=== PATIENT | female | born 1955 ===

== ENCOUNTER → 2020-06-02 15:04 | Outpatient (BNVA) | payer MEDICAID, SELFPAY | PROVIDERS: PCP Internal Medicine; Referring Provider Internal Medicine; Visit Provider Internal Medicine | DX: J44.9 Chronic obstructive pulmonary disease, unspecified (principal); G47.33 Obstructive sleep apnea (adult) (pediatric); R05 Cough; E66.9 Obesity, unspecified; F17.200 Nicotine dependence, unspecified, uncomplicated; Z71.3 Dietary counseling and surveillance; Z71.6 Tobacco abuse counseling; Z79.51 Long term (current) use of inhaled steroids | CPT/HCPCS: 99213 ==

== ENCOUNTER 2020-06-18 13:09 | Emergency (ER) | payer MEDICAID, SELFPAY ==
[2020-06-18 13:15] VITALS: BP 138/59; PULSE 74; RESP 16; TEMP 36.7; O2SAT 94; BMI 37.4
[2020-06-18 13:20] VITALS: BP 138/59; PULSE 71; RESP 16; TEMP 36.7; O2SAT 94
--- NOTE | 2020-06-18 13:48 | ECG_ITS ---
Test Reason : LEFT ARM PAIN Blood Pressure : / mmHG Vent. Rate : 071 BPM Atrial Rate : 071 BPM P-R Int : 160 ms QRS Dur : 084 ms QT Int : 396 ms P-R-T Axes : 056 035 098 degrees QTc Int : 430 ms Normal sinus rhythm Nonspecific T wave abnormality Abnormal ECG When compared with ECG of 31-OCT-2017 00:18, No significant change was found Referred By: Wu Major Electronically Signed By:FERNANDA RODRIGUEZ MD
--- NOTE | 2020-06-18 13:49 | XR_ITS ---
EXAMINATION: XR SHOULDER, LEFT CLINICAL INFORMATION: Left shoulder pain. COMPARISON: None TECHNIQUE: AP and scapular Y views of the left shoulder. FINDINGS: No acute fracture or dislocation. Acromioclavicular joint space narrowing with marginal osteophytes. Anterior and lateral subacromial spurring. Small glenohumeral marginal osteophytes. No osseous erosion. No abnormal soft tissue calcification. XR/XR shoulder LT min 2V IMPRESSION: Moderate acromioclavicular as well as mild glenohumeral osteoarthritis. Anterior and lateral subacromial spurs.
--- NOTE | 2020-06-18 13:50 | ED.EXTPRO ---
HPI - Extremity Problem General Chief complaint: Extremity Problem Stated complaint: LEFT ARM PAIN Time Seen by Provider: 06/18/20 13:47 Source: patient Mode of arrival: ambulatory Limitations: no limitations History of Present Illness HPI Narrative: 64 years old female presented with left arm/shoulder pain for 3 days, describes the pain as constant and more at nighttime, pain is localized on the mid upper left arm, described the pain as severe dull, with no radiation, pain is worsened by movement of the left arm especially trying to raise it above his head, patient declined trauma or recent fall, Related Data Home Medications Medication Instructions Recorded Confirmed albuterol sulfate 90 mcg/actuation 2 puff INHALATION Q6H PRN 06/02/20 aerosol inhaler amitriptyline 25 mg tablet 25 mg PO BEDTIME 06/02/20 aripiprazole 10 mg tablet 10 mg PO DAILY 06/02/20 citalopram 20 mg tablet 20 mg PO DAILY 06/02/20 gabapentin 100 mg capsule 100 mg PO TID 06/02/20 nitrofurantoin macrocrystal 100 mg 100 mg PO BEDTIME 06/02/20 capsule oxybutynin chloride 5 mg 5 mg PO DAILY 06/02/20 tablet,extended release 24 hr umeclidinium 62.5 mcg/actuation 1 inh INHALATION DAILY 06/02/20 blister powder for inhalation verapamil 180 mg 24 hr 180 mg PO DAILY 06/02/20 capsule,extended release Previous Rx's Medication Instructions Recorded benzonatate 100 mg capsule 100 mg PO TID PRN 30 Days #90 cap 06/09/20 Allergies Allergy/AdvReac Type Severity Reaction Status Date / Time No Known Allergies Allergy Mild UNKNOWN Verified 06/02/20 14:59 Review of Systems Review of Systems: all other systems are reviewed and are negative Constitutional: Reports as per HPI and Reports no additional constitutional complaints Eyes: Reports as per HPI and Reports no additional eye complaints Reports system reviewed and no additional complaints, except as documented Cardiovascular: Reports as per HPI and Reports no additional cardiovascular complaints Respiratory: Reports as per HPI and Reports no additional respiratory complaints Gastrointestinal: Reports as per HPI and Reports no additional gastrointestinal complaints Genitourinary: Reports no additional female genitourinary complaints Musculoskeletal: Reports no additional musculoskeletal complaints Skin/Breast: Reports system reviewed and no additional complaints, except as docu Psychiatric: Reports no additional psychiatric complaints Endocrine: Reports no additional endocrine complaints Hematologic/Lymphatic: Reports no additional hematologic/lymphatic complaints Allergic/Immunologic: Reports no additional allergic/immunologic complaints Reports system reviewed and no additional complaints, except as documented and Reports Abnormal speech present [facility] Past Medical History Medical History COPD (chronic obstructive pulmonary disease) Cough Obesity JOSE RAMON (obstructive sleep apnea) Social History Social History Alcohol intake: never Smoking Status: Current every day smoker Packs Per Day: 0.5 Cigarettes Per Day: 10.0 Use of substances other than those prescribed or required for medical reasons: No Advance Directives: No Advance Directives Information Provided: Yes Physical Exam Vital Signs: Vital Signs: Vital Signs Temp Pulse Resp BP Pulse Ox 06/18/20 15:16 98.1 F 63 16 132/58 L 97 06/18/20 13:20 98.1 F 71 16 138/59 L 94 06/18/20 13:15 98.1 F 74 16 138/59 L 94 Body Mass Index 37.4 vital signs have been reviewed as normal and appeared to be correct. Blood pressure on the high range. Heart rate normal. Respiration rate normal. Temperature normal. Oxygen saturation normal. Appearance: Alert. Oriented X3. No acute distress. Head: Normal external exam. Normocephalic. Atraumatic. No Fry signs noted. No raccoon eyes noted Eyes: PERRLA. EOMI. Conjunctiva and sclera normal. Eyelids normal. ENT: EAC normal. TM's Normal. Pharynx normal. Uvula midline. Moist mucous membranes. No trismus noted. No drooling noted. No muffled voice noted. Neck: Normal inspection. Neck supple. FROM. No adenopathy. Thyroid Normal. No meningeal signs. No neck mass noted. CVS: Normal heart rate and rhythm. Heart sound normal. No murmurs noted. Pulses normal throughout. Respiratory: No respiratory distress. Painless inspiration. Breath sounds normal. No wheezes/rales/rhonchi noted. Chest nontender. No accessory muscle usage noted or decreased air movement noted. Abdomen: Soft and nontender. Bowel sounds normal in all 4 quadrants. No distention noted. No organomegaly noted. No visible injury noted. Back: No CVA tenderness. Full range of motion noted. Skin: Skin warm and dry. Normal skin color. Normal skin turgor. No rashes/lesions/lacerations noted. Extremities: No lower extremity edema. Extremities exhibit normal range of motion. tenderness over the greater tuberosity, tenderness started when patient start to elevate her arm up to 30 degree unable to raise the arm above the head. Otherwise painful full range of motion, no deformity. Neuro: Oriented X 3. No motor deficit. No sensory deficit. Reflexes normal. Course Course Course Narrative: 64-year-old female history of COPD, obesity, obstructive sleep apnea, presented with nontraumatic left arm pain likely secondary to rotator cuff tendinitis. Given the patient age and risk factor will obtain blood workup for rule out cardiac origin of the pain (EKG, trope, x-ray ). MDM - Extremity (Nontraumatic) MDM Narrative Medical decision making narrative: Assessment and plan. 64-year-old female came in with 3 days of left arm pain physical exam and finding are consistent with rotator cuff tendinitis, cardiac workup on the patient is unremarkable and that include EKG/troponin. Patient will be discharged home and follow-up with orthopedic doctor and NSAIDs. Lab Data Result diagrams: 06/18/20 14:46 06/18/20 14:46 Labs: Lab Results 06/18/20 06/18/20 06/18/20 Range/Units 14:46 14:46 14:46 WBC 7.9 (4.8-10.8) X10*3/uL RBC 4.38 (4.20-5.50) X10*6/uL Hgb 13.2 (12.0-16.0) g/dl Hct 40.0 (37-47) % MCV 91.3 (80-98) fL MCH 30.1 (27.0-33.0) pg MCHC 33.0 (31.0-35.0) g/dl RDW 13.4 (11.0-16.0) % Plt Count 220 (160-400) X10*3/uL MPV 9.6 (9.4-12.3) fL Immature Gran % (Auto) 0.3 (0.0-0.4) % Neut % (Auto) 71.0 (45-73) % Lymph % (Auto) 21.0 (20-40) % [place] % (Auto) 5.9 (2-11) % Eos % (Auto) 1.4 (0-4) % Baso % (Auto) 0.4 (0-2) % Lymph # (Auto) 1.7 (1.2-4.9) X10*3/uL [place] # (Auto) 0.5 (0.1-1.2) X10*3/uL Eos # (Auto) 0.1 (0.0-0.4) X10*3/uL Baso # (Auto) 0.0 (0.0-0.2) X10*3/uL Abs Immat Gran (auto) 0.02 (0.00-0.03) X10*3/uL Absolute Neuts (auto) 5.6 (2.0-8.3) X10*3/uL Absolute Nucleated RBC 0.000 (0.0-0.012) X10*3/uL Nucleated RBC % (auto) 0.0 (0.0-0.2) /100WBC Sodium 140 (135-145) mmol/L Potassium 4.5 (3.3-5.1) mmol/l Chloride 104 (96-108) mmol/L Carbon Dioxide 28 (22-29) mmol/L Anion Gap 13 (12-20) BUN 10 (9-16) mg/dL Creatinine 0.81 (0.5-1.4) mg/dL Estim Creat Clear Calc 80.2 Estimated GFR > 60 Random Glucose 115 (60-115) mg/dL Calcium 8.3 L (8.4-10.2) mg/dL Troponin I High Sens < 3.5 (<3.5-17.0) ng/L Imaging Data Left shoulder x-ray: My impression: IMPRESSION: Moderate acromioclavicular as well as mild glenohumeral osteoarthritis. Anterior and lateral subacromial spurs. ECG Data Interpretation: normal sinus rhythm at 69 beats per minutes, normal axis deviation, normal intervals, nonspecific T-wave flattening in V3, V4, V5, V6. Discharge Plan Discharge Prescriptions: No Action benzonatate [Tessalon Perles] 100 mg capsule 100 mg PO TID PRN (Reason: cough) 30 Days Qty: 90 RF: 1 citalopram [Celexa] 20 mg tablet 20 mg PO DAILY RF: 0 amitriptyline 25 mg tablet 25 mg PO BEDTIME RF: 0 verapamil 180 mg capsule,ext rel. pellets 24 hr 180 mg PO DAILY RF: 0 gabapentin 100 mg capsule 100 mg PO TID RF: 0 aripiprazole [Abilify] 10 mg tablet 10 mg PO DAILY RF: 0 albuterol sulfate [Ventolin HFA] 90 mcg/actuation HFA aerosol inhaler 2 puff inhalation Q6H PRNRF: 0 Incruse Ellipta 62.5 mcg/actuation blister with device 1 inh inhalation DAILY RF: 0 oxybutynin chloride 5 mg tablet extended release 24hr 5 mg PO DAILY RF: 0 nitrofurantoin macrocrystal 100 mg capsule 100 mg PO BEDTIME RF: 0
[2020-06-18 14:52] LABS: Basophils Percent Auto 0.4 % (0-2); Eosinophils Absolute Auto 0.1 X10*3/uL (0.0-0.4); Eosinophils Percent Auto 1.4 % (0-4); Hemoglobin 13.2 g/dl (12.0-16.0); Imm Gran Abs Auto 0.02 X10*3/uL (0.00-0.03); Imm Gran Pct Auto 0.3 % (0.0-0.4); Lymphocytes Absolute Auto 1.7 X10*3/uL (1.2-4.9); MANUAL DIFF FLAG NO; Mean Corpuscular Hemoglobin 30.1 pg (27.0-33.0); Mean Corpuscular Volume 91.3 fL (80-98); Mean Platelet Volume 9.6 fL (9.4-12.3); Monocytes Absolute Auto 0.5 X10*3/uL (0.1-1.2); Monocytes Percent Auto 5.9 % (2-11); Neutrophils Absolute Auto 5.6 X10*3/uL (2.0-8.3); Platelet Count 220 X10*3/uL (160-400); Red Blood Count 4.38 X10*6/uL (4.20-5.50); Red Cell Distribution Width 13.4 % (11.0-16.0); White Blood Count 7.9 X10*3/uL (4.8-10.8)
[2020-06-18 15:16] VITALS: BP 132/58; PULSE 63; RESP 16; TEMP 36.7; O2SAT 97
[2020-06-18 15:18] LABS: Troponin-I High Sensitivity < 3.5 ng/L (<3.5-17.0)
[2020-06-18 15:23] LABS: Anion Gap 13 (12-20); Blood Urea Nitrogen 10 mg/dL (9-16); Calcium 8.3 mg/dL (8.4-10.2); Carbon Dioxide 28 mmol/L (22-29); Chloride 104 mmol/L (96-108); Creatinine Clr Calc Pharmacy 80.2; Estimated Glomerular Filt Rate > 60; Glucose Random 115 mg/dL (60-115); Potassium 4.5 mmol/l (3.3-5.1); Sodium 140 mmol/L (135-145)
== END 2020-06-18 16:27 | disposition home or self-care (01) ==
PROVIDERS: Emergency Provider Emergency Medicine; PCP Internal Medicine
DX: M79.622 Pain in left upper arm (principal); Z79.899 Other long term (current) drug therapy; F17.200 Nicotine dependence, unspecified, uncomplicated; Z71.6 Tobacco abuse counseling
CPT/HCPCS: 36415; 73030; 80048; 84484; 85025; 93005; 99283; 99284

== ENCOUNTER → 2020-07-20 10:58 | Outpatient (BNVA) | payer MEDICAID, SELFPAY | PROVIDERS: Visit Provider Orthopaedic Surgery | DX: M25.512 Pain in left shoulder (principal); M75.42 Impingement syndrome of left shoulder; F17.210 Nicotine dependence, cigarettes, uncomplicated | CPT/HCPCS: 99202 ==

== ENCOUNTER 2020-08-10 11:47 | Outpatient (REF) | payer MEDICAID, SELFPAY | END 2020-08-10 11:48 | disposition home or self-care (01) | LOC: HO.LAB 11:47 | PROVIDERS: Visit Provider Internal Medicine | DX: Z20.828 Contact with and (suspected) exposure to other viral communicable diseases (principal) | CPT/HCPCS: C9803; U0003 ==

== ENCOUNTER 2020-08-23 10:35 | Outpatient (REF) | payer MEDICAID, SELFPAY | END 2020-08-23 10:36 | disposition home or self-care (01) | LOC: HO.LAB 10:35 | PROVIDERS: Visit Provider Internal Medicine | DX: Z20.828 Contact with and (suspected) exposure to other viral communicable diseases (principal) | CPT/HCPCS: 36415; C9803; U0003 ==

== ENCOUNTER → 2020-09-15 14:54 | Outpatient (BNVA) | payer MEDICAID, SELFPAY | PROVIDERS: PCP Internal Medicine; Visit Provider Urology ==

== ENCOUNTER 2020-12-08 09:54 | Outpatient (REF) | payer MEDICARE, SELFPAY ==
[2020-12-08 10:31] LABS: COVID-19 Test Negative (Negative)
== END 2020-12-08 09:55 | disposition home or self-care (01) ==
LOC: HO.LAB 09:54
PROVIDERS: Visit Provider Internal Medicine
DX: Z20.822 Contact with and (suspected) exposure to COVID-19 (principal)
CPT/HCPCS: 36415; 87635; C9803

== ENCOUNTER → 2021-01-26 11:15 | Outpatient (BNVA) | payer MEDICARE, SELFPAY | PROVIDERS: PCP Internal Medicine; Visit Provider Internal Medicine | DX: J44.9 Chronic obstructive pulmonary disease, unspecified (principal); G47.33 Obstructive sleep apnea (adult) (pediatric) | CPT/HCPCS: Q3014 ==

== ENCOUNTER → 2021-03-07 13:10 | Outpatient (BNVA) | payer MEDICARE, SELFPAY | PROVIDERS: PCP Internal Medicine | DX: N39.41 Urge incontinence (principal) | CPT/HCPCS: Q3014 ==

== ENCOUNTER → 2021-05-02 11:29 | Outpatient (BNVA) | payer MEDICARE, SELFPAY | PROVIDERS: PCP Internal Medicine | DX: N39.41 Urge incontinence (principal) | CPT/HCPCS: Q3014 ==

== ENCOUNTER → 2021-07-17 14:05 | Outpatient (BNVA) | payer MEDICARE, SELFPAY | PROVIDERS: PCP Internal Medicine; Visit Provider Internal Medicine | DX: G47.33 Obstructive sleep apnea (adult) (pediatric) (principal); G47.34 Idiopathic sleep related nonobstructive alveolar hypoventilation; J44.9 Chronic obstructive pulmonary disease, unspecified | CPT/HCPCS: Q3014 ==

== ENCOUNTER 2021-08-15 14:03 | Outpatient (RCR) | payer MEDICARE, SELFPAY | END 2021-09-04 10:52 | disposition home or self-care (01) | LOC: HO.PT 14:03 | PROVIDERS: PCP Internal Medicine; Visit Provider Internal Medicine | DX: M54.50 Low back pain, unspecified (principal) | CPT/HCPCS: 97162 ==

== ENCOUNTER 2021-09-07 10:00 | Outpatient (REF) | payer MEDICARE, SELFPAY ==
--- NOTE | ~2021-09-07 | XR_ITS ---
EXAMINATION: XR CHEST CLINICAL INFORMATION: Cough COMPARISON: Chest radiographs 10/10/2019, 11/20/2018 TECHNIQUE: 2 views of the chest were obtained. FINDINGS: There is coarsening of the bronchiolar and interstitial markings similar to prior exam. No lobar or segmental airspace consolidation or definite groundglass opacities. The costophrenic sulci are clear. There is no effusion. The heart is normal in size. The vascularity is normal. The hilar and mediastinal contours and bony structures are stable. XR/XR chest 2V IMPRESSION: Chronic coarsening bronchiolar and interstitial markings. No focal airspace consolidation or definite groundglass opacity.
[2021-09-07 11:37] LABS: Anion Gap 11 (12-20); Blood Urea Nitrogen 11 mg/dL (9-16); Calcium 9.2 mg/dL (8.4-10.2); Carbon Dioxide 28 mmol/L (22-29); Chloride 107 mmol/L (96-108); Cholesterol 189 mg/dL; Estimated Glomerular Filt Rate > 60; Glucose Random 93 mg/dL (60-115); HDL Cholesterol 45 mg/dL; LDL Cholesterol Calculated 115 mg/dl; Potassium 4.3 mmol/L (3.3-5.1); Sodium 142 mmol/L (135-145); Triglycerides 148 mg/dL
== END 2021-09-07 10:01 | disposition home or self-care (01) ==
LOC: HO.XRAY 10:00
PROVIDERS: Absent Provider Internal Medicine; PCP Internal Medicine; Visit Provider Emergency Medicine
DX: I10 Essential (primary) hypertension (principal); R05.9 Cough, unspecified
CPT/HCPCS: 36415; 71046; 80048; 80061

== ENCOUNTER → 2021-10-30 10:57 | Outpatient (BNVA) | payer MEDICARE, SELFPAY | PROVIDERS: PCP Internal Medicine | DX: N39.41 Urge incontinence (principal); N32.81 Overactive bladder | CPT/HCPCS: Q3014 ==

== ENCOUNTER 2021-12-28 14:11 | Outpatient (REF) | payer MEDICARE, SELFPAY ==
--- NOTE | ~2021-12-28 | MM_ITS ---
EXAMINATION: MM SCREENING DIGITAL BREAST TOMOSYNTHESIS, BILATERAL CLINICAL INFORMATION: Screening. Asymptomatic. The lifetime risk of breast cancer based on the Tyrer-Cuzick Model is 5.5%. COMPARISON: Mammography: November 24, 2015 and studies dating back to March 06, 2010 TECHNIQUE: Digital breast tomosynthesis is performed in both the craniocaudal and mediolateral oblique views along with computer-aided detection (CAD). Synthesized 2D images are generated from the tomosynthesis. FINDINGS: There are scattered areas of fibroglandular density (ACR BI-RADS breast composition Category b). There are no significant masses, abnormal calcifications, or other abnormalities. MM/MM tomosynthesis screening BI IMPRESSION: There are no significant changes from prior study. ASSESSMENT: BI-RADS 1: Negative RECOMMENDATION: Routine annual mammography screening. This patient's information was entered into a reminder system with a target due date for their next mammogram.
== END 2021-12-28 14:12 | disposition home or self-care (01) ==
LOC: HO.MAMMO 14:11
PROVIDERS: PCP Internal Medicine; Visit Provider Internal Medicine
DX: Z12.31 Encounter for screening mammogram for malignant neoplasm of breast (principal)
CPT/HCPCS: 77063; 77067

== ENCOUNTER → 2022-01-30 08:56 | Outpatient (BNVA) | payer MEDICARE, SELFPAY | PROVIDERS: PCP Internal Medicine | DX: N32.81 Overactive bladder (principal) | CPT/HCPCS: Q3014 ==

== ENCOUNTER → 2022-08-14 13:50 | Outpatient (BNVA) | payer MEDICARE, SELFPAY | PROVIDERS: PCP Internal Medicine; Visit Provider Internal Medicine | DX: G47.33 Obstructive sleep apnea (adult) (pediatric) (principal); G47.34 Idiopathic sleep related nonobstructive alveolar hypoventilation; J44.9 Chronic obstructive pulmonary disease, unspecified; R07.89 Other chest pain; E66.9 Obesity, unspecified; Z68.37 Body mass index [BMI] 37.0-37.9, adult; Z79.899 Other long term (current) drug therapy; Z99.81 Dependence on supplemental oxygen | CPT/HCPCS: 93005; 99212 ==

== ENCOUNTER 2022-09-26 13:11 | Outpatient (REF) | payer MEDICARE, SELFPAY | END 2022-09-26 13:12 | disposition home or self-care (01) | LOC: HO.LAB 13:11 | PROVIDERS: PCP Internal Medicine; Visit Provider Nurse Practitioner Family | DX: N39.0 Urinary tract infection, site not specified (principal); R10.9 Unspecified abdominal pain; N32.81 Overactive bladder; N39.41 Urge incontinence; Z79.899 Other long term (current) drug therapy | CPT/HCPCS: 51798; 87086; 99212 ==

== ENCOUNTER 2022-12-20 13:31 | Outpatient (REF) | payer MEDICARE, MEDICAID, SELFPAY ==
--- NOTE | ~2022-12-20 | US_ITS ---
EXAMINATION: US RETROPERITONEAL COMPLETE (RENAL) CLINICAL INFORMATION: Urge incontinence. COMPARISON: CT abdomen and pelvis without contrast dated 07/16/2018. TECHNIQUE: Real-time imaging of the kidneys and bladder. FINDINGS: RIGHT KIDNEY: 10.6 x 4.4 x 5.8 cm (SAG x AP x TRV). The kidney is normal in size, contour, and echogenicity. Renal cortical thickness is normal. No calculi or focal parenchymal lesions. No hydronephrosis. LEFT KIDNEY: 9.9 x 5.0 x 5.3 cm (SAG x AP x TRV). The kidney is normal in size, contour, and echogenicity. Renal cortical thickness is normal. No calculi or focal parenchymal lesions. There is pelviectasis, without chata hydronephrosis. BLADDER: Well distended and normal. Bilateral ureteral jets are demonstrated. Prevoid bladder volume is 507 mL. Postvoid bladder volume is 161 mL. US/US retroperitoneal comp IMPRESSION: 1. No renal mass or calculus is seen bilaterally. 2. There is mild left pelviectasis. No chata hydronephrosis is noted bilaterally. 3. There is an increased postvoid residual volume.
== END 2022-12-20 13:32 | disposition home or self-care (01) ==
LOC: HO.US 13:31
PROVIDERS: PCP Internal Medicine; Visit Provider Nurse Practitioner Family
DX: R10.9 Unspecified abdominal pain (principal); N32.81 Overactive bladder; N39.41 Urge incontinence
CPT/HCPCS: 76770

== ENCOUNTER 2023-01-03 | Outpatient (REF) | payer MEDICARE, SELFPAY | END 2023-01-03 00:01 | LOC: CF | PROVIDERS: PCP Internal Medicine; Visit Provider Nurse Practitioner Family | DX: N32.81 Overactive bladder (principal); R35.0 Frequency of micturition; R35.1 Nocturia; R31.29 Other microscopic hematuria | CPT/HCPCS: 51798; 99212 ==

== ENCOUNTER 2023-04-23 15:04 | Outpatient (AMB) | payer MEDICARE, SELFPAY ==
[2023-04-23 15:10] VITALS: BP 102/70; PULSE 80; O2SAT 98; BMI 35.9
--- NOTE | 2023-04-23 15:10 | MHC.OFFVIS ---
Intake Vital Signs 04/23/23 15:10 Height 5 ft 4 in Weight 209 lb BMI 35.9 BP 102/70 Blood Pressure Location Lt brachial Position Sitting Pulse 80 Pulse Source Pulse Oximeter Pulse Oximetry (%) 98 Oxygen Delivery Method Room Air Intake Visit Reasons: sleep apnea Intake Note: pt is here for follow up and states today she is okay, but the past nights she had difficult with breathing, using cpap with oxygen, but feels like she is not getting a good breath. Senior Physical Therapist Required: No Allergies No Known Allergies Allergy (Mild, Verified 04/23/23 15:28) UNKNOWN Medication List - Last Reconciled 04/23/23 by Oleksandr Ortega MD albuterol sulfate 90 mcg/actuation (Ventolin HFA) 2 puffs inhalation Q6H PRN amitriptyline 25 mg PO BEDTIME aripiprazole mg PO aripiprazole 2 mg PO DAILY bupropion HCl 200 mg PO BID citalopram (Celexa) 20 mg PO DAILY citalopram 40 mg PO QAM gabapentin 400 mg PO TID Incruse Ellipta 62.5 mcg/actuation (umeclidinium) 1 inh PO DAILY NS mirtazapine 15 mg PO BEDTIME morphine ER 30 mg PO DAILY naloxone 4 mg/actuation 0 sprays intranasal verapamil 40 mg PO BID Do you need a note to return to daycare/school/sports/work: No HPI sleep apnea HPI Details 67 YEARS OLD VERY PLEASANT FEMALE IS HERE FOR FOLLOW-UP AND COMING AFTER ABOUT 9 MONTHS. SHE IS A CASE OF MODERATE OBESITY, HIS SLEEP APNEA, CHRONIC HYPOVENTILATION SYNDROME BECAUSE OF NARCOTICS USAGE . SHE ALSO HAS CHRONIC OBSTRUCTIVE LUNG DISEASE, WITH INTERMITTENT COUGH AND WHEEZING. WHILE SHE IS USING HER CPAP VERY REGULARLY ALONG WITH OXYGEN, SHE IS WAKING UP AT NIGHT A FEW TIMES BECAUSE OF COUGH AND SOME WHEEZING. SHE TENDS TO USE ALBUTEROL INHALER A FEW TIMES DURING THE NIGHT. 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 DENIES HAVING HAD ANY RESPIRATORY INFECTION LATELY. [facility] Medical History COPD (chronic obstructive pulmonary disease) Costochondral chest pain Cough Maternal UTI (urinary tract infection), recurrent Nocturnal hypoxemia OAB (overactive bladder) Obesity JOSE RAMON (obstructive sleep apnea) Urge incontinence Urgency incontinence Social History Alcohol intake: never Cigarette Packs Per Day: 0.5 Cigarettes Per Day: 10.0 Current occupation: Right Handed Review of Systems Const All systems reviewed & are unremarkable except as noted in HPI and below Eyes Reports no additional complaints ENT Reports nasal congestion (MILD INTERMITTENT) Card Reports chest pain ( nonspecific discomfort in the left upper chest), Denies irregular heart rhythm, Denies leg edema and Denies dyspnea on exertion Resp Reports as per HPI, Denies cough, Denies dyspnea on exertion and Denies wheezing GI Reports no additional complaints Reports urinary urgency Musc Reports back pain (DUE TO COUGH) Skin/Breast Reports system reviewed and no additional complaints, except as documented Neuro Reports no additional complaints Psych Reports no additional complaints Aller/Immun Denies wheezing Physical Exam Vital Signs: Last Vital Signs Pulse 80 04/23/23 15:10 BP 102/70 04/23/23 15:10 Pulse Ox 98 04/23/23 15:10 Oxygen Delivery Method Room Air 04/23/23 15:10 BMI result Body Mass Index 35.9 Const General: healthy appearing, comfortable, no acute distress, alert and awake Orientation/consciousness: patient oriented x3 HEENT Head: Yes normal to inspection General nose exam: No nasal polyps present and No nasal discharge present Face and sinus: Yes sinuses nontender Mouth: oropharynx normal Throat: Yes posterior oropharynx normal Eyes General: appearance normal, both eyes and all related structures Neck Neck: Yes normal visual inspection, Yes no lymphadenopathy, Yes trachea midline and Yes no JVD Thyroid: Thyroid normal Chest Chest palpation & inspection: normal inspection of the chest, normal palpation of entire chest wall and no tenderness Resp Other: PERCUSSION NOTE IS RESONANT BREATH SOUNDS ARE DISTANT WITH PROLONGED EXPIRATORY PHASE, THERE ARE A FEW SCATTERED EXPIRATORY WHEEZES. Cardio Palpation: normal PMI Rate: regular rate Rhythm: regular rhythm Heart sounds: no gallops and no murmurs GI Palpation (GI): Soft to palpation, nontender, No hepatosplenomegaly present and no masses Auscultation: normal bowel sounds Back/Spine/Pelvis Thoracic/Lumbar Spine: thoracic and lumbar spine normal to inspection Skin General skin exam: no rashes or lesions noted Neuro General: patient oriented x3 and no focal motor deficits Cranial nerves: Yes CN's II-XII intact bilaterally Extrem General: Yes normal to inspection, Yes no clubbing, cyanosis or edema and Yes no calf tenderness Psych Appearance: grossly normal Speech and movement: Normal speech and movement present Results Reviewed Results Reviewed: SPIROMETRY , FVC = 92 % FEV1=90 $ FEF 25-75 = 89 % NORMAL COMPLIANCE SHE USED THE CPAP 30/30 NIGHTS, 100%. AVERAGE USE PER DAY IS 13 HOURS 37 MINUTES, IN ADDITION TO THE NIGHTS SHE USES CPAP DURING THE DAYTIME ALSO. THERE IS THE SOME AIR LEAK RESIDUAL AHI ONLY 0.5 Assessment & Plan Assessment & Plan (1) Nocturnal hypoxemia: Comment: SHE HAS NOCTURNAL HYPOXEMIA ALL IN ADDITION TO OBSTRUCTIVE SLEEP APNEA. ADVISED TO CONTINUE O2 2 L/MINUTE AT NIGHT , ALONG WITH THE CPAP. Code(s): G47.34 - Idiopathic sleep related nonobstructive alveolar hypoventilation (2) JOSE RAMON (obstructive sleep apnea): Comment: WELL KNOWN CASE OF OBSTRUCTIVE SLEEP APNEA. PATIENT IS VERY COMPLIANT IN USING CPAP AND IS BENEFITTING, NO ISSUES RELATED TO THE CPAP MASK OR MACHINE. Code(s): G47.33 - Obstructive sleep apnea (adult) (pediatric) (3) COPD (chronic obstructive pulmonary disease): Comment: SHE HAS PAST DIAGNOSIS OF COPD. BUT TODAY SPIROMETRY IS ESSENTIALLY NORMAL. I THINK SHE HAS THE REACTIVE AIRWAYS/BRONCHIAL ASTHMA SHE COMPLAINS OF COUGH AND SOME WHEEZING ESPECIALLY AT NIGHT, TX : CONTINUE TO USE INCRUSE ELLIPTA 1 INHALATION DAILY. USE ALBUTEROL HFA 1 OR 2 PUFFS EVEN BEFORE PUTTING ON THE CPAP AND IL AN DURING THE NIGHT. Code(s): J44.9 - Chronic obstructive pulmonary disease, unspecified (4) Obesity: Comment: DISCUSSED WITH HER THAT HER WEIGHT IS A BIG PROBLEM AND SHE SHOULD TRY TO LOSE WEIGHT BY CUTTING DOWN THE CALORIES AND TRYING TO DO SOME EXERCISE AT HOME. UNFORTUNATELY SHE IS NOT ABLE TO PARTICIPATE IN ANY OUTSIDE WEIGHT MANAGEMENT PROGRAM. Code(s): E66.9 - Obesity, unspecified Orders: Orders Venous Blood Gas Today G47.33 - Obstructive sleep apnea (adult) (pediatric), G47.34 - Idiopathic sleep related nonobstructive alveolar hypoventilation, J44.9 - Chronic obstructive pulmonary disease, unspecified Coding Level of Care Code Est Pt Level 4 (63676) Diagnoses Nocturnal hypoxemia G47.34 JOSE RAMON (obstructive sleep apnea) G47.33 COPD (chronic obstructive pulmonary disease) J44.9 Obesity E66.9
== END 2023-04-23 15:41 | disposition home or self-care (01) ==
PROVIDERS: PCP Internal Medicine; Visit Provider Internal Medicine
DX: G47.34 Idiopathic sleep related nonobstructive alveolar hypoventilation (principal); G47.33 Obstructive sleep apnea (adult) (pediatric); J44.9 Chronic obstructive pulmonary disease, unspecified; E66.9 Obesity, unspecified
CPT/HCPCS: 99214

== ENCOUNTER 2023-04-23 15:04 | Outpatient (REF) | payer MEDICARE, SELFPAY ==
[2023-04-23 16:17] LABS: Venous Blood Gas Refer to POC result
[2023-04-23 16:46] LABS: VBG pCO2 41 mmHg; VBG pH 7.41 (7.32-7.43); VBG pO2 33 mmHg
[2023-04-23 16:47] LABS: VBG HCO3 26 mmol/L (22-26)
== END 2023-04-23 15:05 | disposition home or self-care (01) ==
LOC: HO.LAB 15:04
PROVIDERS: PCP Internal Medicine; Visit Provider Internal Medicine
DX: G47.34 Idiopathic sleep related nonobstructive alveolar hypoventilation (principal); G47.33 Obstructive sleep apnea (adult) (pediatric); E66.9 Obesity, unspecified; J44.9 Chronic obstructive pulmonary disease, unspecified
CPT/HCPCS: 36415; 82803; 99212

== ENCOUNTER 2023-04-30 11:40 | Outpatient (REF) | payer MEDICARE, MEDICAID, SELFPAY | END 2023-04-30 11:41 | disposition home or self-care (01) | LOC: HO.LNP 11:40 | PROVIDERS: PCP Internal Medicine; Visit Provider Nurse Practitioner Family | DX: R31.29 Other microscopic hematuria (principal); N32.81 Overactive bladder; N39.41 Urge incontinence; N39.0 Urinary tract infection, site not specified | CPT/HCPCS: 51798; 81003; 87086; 99212 ==

== ENCOUNTER 2023-04-30 11:40 | Outpatient (AMB) | payer MEDICARE, MEDICAID, SELFPAY ==
--- NOTE | 2023-04-30 11:42 | MHC.OFFVIS ---
Intake Intake Visit Reasons: Urgency/incontinence' follow up Intake Note: Patient is present for follow up OAB/Frequency/Micro Hematuria Urology Medications: previously treated w/ myrbetriq, no medications currently Blood Thinner: none PVR: 0ml's Dot Etcher Apprentice Required: No Accompanied by: Self / Same As Patient Allergies No Known Allergies Allergy (Mild, Verified 04/30/23 22:38) UNKNOWN Medication List - Last Reconciled 04/30/23 by JM Dubois- albuterol sulfate 90 mcg/actuation (Ventolin HFA) 2 puffs inhalation Q6H PRN amitriptyline 25 mg PO BEDTIME aripiprazole mg PO aripiprazole 2 mg PO DAILY bupropion HCl 200 mg PO BID citalopram (Celexa) 20 mg PO DAILY citalopram 40 mg PO QAM estradiol 0.01%(0.1mg/gram) vaginally 3 times a week; pea sized amount to urethra 3 times a week 30 days gabapentin 400 mg PO TID Incruse Ellipta 62.5 mcg/actuation (umeclidinium) 1 inh PO DAILY NS mirtazapine 15 mg PO BEDTIME morphine ER 30 mg PO DAILY naloxone 4 mg/actuation 0 sprays intranasal sulfamethoxazole-trimethoprim 800-160 mg (Bactrim DS) 1 tab PO BID 10 days verapamil 40 mg PO BID HPI HPI Comments History of Present Illness Details Karina is a pleasant 67-year-old female patient of Dr. Rajan. She has a past medical history of overactive bladder, urinary incontinence, COPD, and obstructive sleep apnea. She presents to the office today for a follow-up. Of note, patient was previously seen approximately 4 months ago for increased episodes of nocturia, urinary frequency, and urinary urgency. Previous workup has included a retroperitoneal ultrasound noting no renal mass or calculus seen bilaterally. The bladder is well distended and normal. Bilateral ureteral jets are demonstrated. There was an increased postvoid residual volume of 160 mL. Patient has also previously had urine sent out for Microgen testing and was treated with fosfomysin. In office urinalysis results reviewed with the patient today. 2+ leukocytes. PVR 0 mL. When asked patient reporting dysuria, and urinary frequency. She otherwise denies incontinence, hematuria, dysuria, foul smelling urine, changes to urinary stream, flank pain, fever, and or chills. [facility] Medical History Costochondral chest pain OAB (overactive bladder) Nocturnal hypoxemia Maternal UTI (urinary tract infection), recurrent Urgency incontinence Urge incontinence Cough COPD (chronic obstructive pulmonary disease) Obesity JOSE RAMON (obstructive sleep apnea) Social History Alcohol intake: never Cigarette Packs Per Day: 0.5 Cigarettes Per Day: 10.0 Current occupation: Right Handed Review of Systems Const Reports as per HPI Eyes Reports no additional complaints ENT Reports as per HPI Card Reports no additional complaints Resp Reports as per HPI GI Reports no additional complaints Reports as per HPI Neuro Reports no additional complaints Psych Reports no additional complaints Endo Reports no additional complaints Physical Exam Const General: cooperative, healthy appearing, comfortable, no acute distress, well developed, alert and awake Orientation/consciousness: patient oriented x3 Limitations: no limitations HEENT Head: Yes normal to inspection, Yes normocephalic and Yes atraumatic Ears: hearing grossly normal bilaterally Eyes General: appearance normal, both eyes and all related structures Neck Neck: Yes normal visual inspection and Yes trachea midline Chest Chest palpation & inspection: normal inspection of the chest Resp Effort & Inspection: normal respiratory effort and able to speak in complete sentences Cardio Rate: regular rate GI Inspection: Yes normal to inspection General: Yes CVA tenderness (bilaterally) Back/Spine/Pelvis Back: CVA tenderness (bilaterally) Neuro General: patient oriented x3 Extrem General: Yes normal to inspection Psych Appearance: grossly normal and well kempt Mental Status: mental status grossly normal Speech and movement: Normal speech and movement present and Clear speech present Affect: normal affect Attitude: cooperative Thought process: Normal thought process present Insight: Fair insight present (Psych) Judgement: Fair judgement present (Psych) Office Procedures Post Void Residual Post Residual Void Post Void Residual (PVR): 0 30497-Pnry Void Residual by ultrasound Results AMB Urinalysis, Automated UA Leukoctes 125 Brandon/uL Last Edit by Lillian Palacios on 04/30/23 12:04 UA Nitrite Negative Last Edit by Lillian Palacios on 04/30/23 12:04 UA Urobilinogen 0.2 mg/dL Last Edit by Lillian Palacios on 04/30/23 12:04 UA Protein 15 mg/dL Last Edit by Lillian Josetucker on 04/30/23 12:04 UA pH 5.5 Last Edit by Lillian Rebecatucker on 04/30/23 12:04 UA Blood 0 Geo/uL Last Edit by Lillian Rebecatucker on 04/30/23 12:04 UA Specific [place] 1.030 Last Edit by Lillian Rebecatucker on 04/30/23 12:04 UA Ketone Negative Last Edit by Lillian Rebecatucker on 04/30/23 12:04 UA Bilirubin 1 mg/dL Last Edit by Lillian Rebecatucker on 04/30/23 12:04 UA Glucose 0 mg/dL Last Edit by Lillian Rebecatucker on 04/30/23 12:04 Results Reviewed Results Reviewed: Laboratory Last Values Urine pH (Auto) 5.5 04/30/23 11:47 Specific [place] (Auto) 1.030 04/30/23 11:47 Urine Protein (Auto) 15 mg/dL 04/30/23 11:47 Glucose (UA)(Auto) 0 mg/dL 04/30/23 11:47 Urine Ketones (Auto) Negative 04/30/23 11:47 Urine Blood (Auto) 0 Geo/uL 04/30/23 11:47 Urine Nitrite (Auto) Negative 04/30/23 11:47 Urine Bilirubin (Auto) 1 mg/dL 04/30/23 11:47 Urine Urobilinogen (Auto) 0.2 mg/dL 04/30/23 11:47 Leukocyte Esterase (Auto) 125 [place]/uL 04/30/23 11:47 Assessment & Plan Assessment & Plan (1) OAB (overactive bladder): Code(s): N32.81 - Overactive bladder (2) Urge incontinence: Code(s): N39.41 - Urge incontinence (3) Urinary tract infection: Code(s): N39.0 - Urinary tract infection, site not specified Plan In office urinalysis results reviewed with the patient today; as noted above; will send for urine culture. Start Bactrim as discussed and prescribed. Discussed UTI prevention with D mannose supplement, vitamin-C, increasing fluid intake, behavioral therapy with timed voiding, perineal hygiene and postcoital voiding, and management of constipation with stool softeners and increased fiber intake. Discussed near future in office cystoscopy if symptoms persist and/or worsen. Start Estrace cream as discussed and prescribed. PVR 0 mL. Continue Myrbetriq as patient reports improvement in urinary incontinence Follow-up in 1 month with PVR; or sooner with any issues, concerns, and or questions. Orders: Orders AMB Urinalysis Automated Today Z13.9 - Encounter for screening, unspecified AMB Post Void Residual by ultrasound Today R35.1 - Nocturia Urine Culture Today R31.29 - Other microscopic hematuria Medications: New sulfamethoxazole-trimethoprim 800-160 mg (Bactrim DS) Start medications 2 days prior to procedure and continue for 2 days after procedure 1 tab PO BID 10 days 20 tabs 0RF N32.81 - Overactive bladder estradiol 0.01%(0.1mg/gram) vaginally 3 times a week; pea sized amount to urethra 3 times a week 30 days 42.5 grams 0RF R32 - Unspecified urinary incontinence Patient Instructions: The patient had an opportunity to ask questions regarding the treatment plan. All questions were answered. Physical exam, labs, and imaging were discussed and reviewed in detail. As well as risks, benefits, and discussion of treatment choices. No major barriers to understanding were identified. The patient expressed understanding and agreement with the above treatment plan. The patient was made aware they should contact our office by phone for worsening of their current condition, the appearance of new symptoms, or with any questions or concerns. Compliance is encouraged with any medications and follow up testing that is ordered. It is a privilege to be allowed the opportunity to participate in? your urological care.? Again, if you have any questions or concerns If you have any questions or concerns please do not hesitate to contact me. The office is [phone]. This note is constructed using voice recognition software. While every effort has been made to ensure accuracy carcass trimmer errors may have been included. Yours sincerely, LUCERO Dubois Coding Level of Care Code Est Pt Level 4 (82070) Diagnoses OAB (overactive bladder) N32.81 Urge incontinence N39.41 Urinary tract infection N39.0 CPT Codes Post Residual Void - PVR CPT Code: 42633-Zfal Void Residual by ultrasound ([id number])
== END 2023-04-30 12:39 | disposition home or self-care (01) ==
PROVIDERS: PCP Internal Medicine; Visit Provider Nurse Practitioner Family
DX: N32.81 Overactive bladder (principal); N39.41 Urge incontinence; N39.0 Urinary tract infection, site not specified
CPT/HCPCS: 99214

== ENCOUNTER 2023-05-07 10:24 | Outpatient (REF) | payer MEDICARE, MEDICAID, SELFPAY ==
[2023-05-07 12:51] LABS: Cholesterol 231 mg/dL (<200); HDL Cholesterol 61 mg/dL (>40); LDL Cholesterol Calculated 146 mg/dL (<100); Triglycerides 121 mg/dL (<150)
[2023-05-07 13:04] LABS: Anion Gap 15 (12-20); Blood Urea Nitrogen 8 mg/dL (9-16); Calcium 10.2 mg/dL (8.4-10.2); Carbon Dioxide 24 mmol/L (22-29); Chloride 106 mmol/L (96-108); Estimated Glomerular Filt Rate 49; Glucose Random 102 mg/dL (60-115); Potassium 4.5 mmol/L (3.3-5.1); Sodium 140 mmol/L (135-145)
[2023-05-07 13:12] LABS: TSH reflex Free T4 1.45 uIU/mL (0.32-4.0)
[2023-05-07 13:35] LABS: Reflex LDLD? No
== END 2023-05-07 10:25 | disposition home or self-care (01) ==
LOC: HO.HHCL 10:24
PROVIDERS: Visit Provider Internal Medicine
DX: I10 Essential (primary) hypertension (principal)
CPT/HCPCS: 36415; 80048; 80061; 84443

== ENCOUNTER 2023-05-30 13:07 | Outpatient (AMB) | payer MEDICARE, MEDICAID, SELFPAY ==
--- NOTE | 2023-05-30 13:11 | MHC.OFFVIS ---
Intake Intake Visit Reasons: 1 month/ PVR Intake Note: Patient is present for follow up OAB/Frequency/Micro Hematuria Urology Medications: Estrace Cream Blood Thinner: none PVR: 2ml's Registered Representative Required: No Accompanied by: Self / Same As Patient Allergies No Known Allergies Allergy (Mild, Verified 05/30/23 22:16) UNKNOWN Medication List - Last Reconciled 05/30/23 by JM Dubois-IRMA albuterol sulfate 90 mcg/actuation (Ventolin HFA) 2 puffs inhalation Q6H PRN amitriptyline 25 mg PO BEDTIME aripiprazole mg PO aripiprazole 2 mg PO DAILY bupropion HCl 200 mg PO BID citalopram (Celexa) 20 mg PO DAILY citalopram 40 mg PO QAM estradiol 0.01%(0.1mg/gram) vaginally 3 times a week; pea sized amount to urethra 3 times a week 30 days gabapentin 400 mg PO TID Incruse Ellipta 62.5 mcg/actuation (umeclidinium) 1 inh PO DAILY NS mirabegron ER (Myrbetriq) 25 mg PO DAILY 30 days mirtazapine 15 mg PO BEDTIME morphine ER 30 mg PO DAILY naloxone 4 mg/actuation 0 sprays intranasal verapamil 40 mg PO BID HPI HPI Comments History of Present Illness Details Karina is a pleasant 67-year-old female patient of Dr. Rajan. She has a past medical history of overactive bladder, urinary incontinence, COPD, and obstructive sleep apnea. She presents to the office today for a follow-up. Of note, patient was previously seen approximately 1 month ago in treated for a urinary tract infection. In discussion with the patient today she reports somewhat improvement in lower urinary tract symptoms since her last office visit here. She reports noting lower urinary tract symptoms improving with Myrbetriq 25 mg daily however she does continue to experience episodes of urinary frequency, urinary urgency, and incontinence if not near a bathroom. Previous workup has included a retroperitoneal ultrasound noting no renal mass or calculus seen bilaterally. The bladder is well distended and normal. Bilateral ureteral jets are demonstrated. When asked patient reporting dysuria, nocturia, and urinary frequency. She otherwise denies incontinence, hematuria, dysuria, foul smelling urine, changes to urinary stream, flank pain, fever, and or chills. In office urinalysis results reviewed with the patient today. PVR 2 mL. Discussed at length importance of limiting/quitting smoking for improvement in lower urinary tract symptoms as well as overall health and well-being. [facility] Medical History Costochondral chest pain OAB (overactive bladder) Nocturnal hypoxemia Maternal UTI (urinary tract infection), recurrent Urgency incontinence Urge incontinence Cough COPD (chronic obstructive pulmonary disease) Obesity JOSE RAMON (obstructive sleep apnea) Social History Alcohol intake: never Cigarette Packs Per Day: 0.5 Cigarettes Per Day: 10.0 Current occupation: Right Handed Review of Systems Const Reports as per HPI Eyes Reports no additional complaints ENT Reports as per HPI Card Reports no additional complaints Resp Reports as per HPI GI Reports no additional complaints Reports as per HPI Neuro Reports no additional complaints Psych Reports no additional complaints Endo Reports no additional complaints Physical Exam Const General: cooperative, healthy appearing, comfortable, no acute distress, well developed, alert and awake Orientation/consciousness: patient oriented x3 Limitations: no limitations HEENT Head: Yes normal to inspection, Yes normocephalic and Yes atraumatic Ears: hearing grossly normal bilaterally Eyes General: appearance normal, both eyes and all related structures Neck Neck: Yes normal visual inspection and Yes trachea midline Chest Chest palpation & inspection: normal inspection of the chest Resp Effort & Inspection: normal respiratory effort and able to speak in complete sentences Cardio Rate: regular rate GI Inspection: Yes normal to inspection General: Yes CVA tenderness (bilaterally) Back/Spine/Pelvis Back: CVA tenderness (bilaterally) Neuro General: patient oriented x3 Extrem General: Yes normal to inspection Psych Appearance: grossly normal and well kempt Mental Status: mental status grossly normal Speech and movement: Normal speech and movement present and Clear speech present Affect: normal affect Attitude: cooperative Thought process: Normal thought process present Insight: Fair insight present (Psych) Judgement: Fair judgement present (Psych) Office Procedures Post Void Residual Post Residual Void Post Void Residual (PVR): 2 34787-Lchb Void Residual by ultrasound Results AMB Urinalysis, Automated UA Leukoctes 125 Brandon/uL Last Edit by Lillian Palacios on 05/30/23 13:35 UA Nitrite Negative Last Edit by Lillian Palacios on 05/30/23 13:35 UA Urobilinogen 0.2 mg/dL Last Edit by Lillian Palacios on 05/30/23 13:35 UA Protein 15 mg/dL Last Edit by Lillian Palacios on 05/30/23 13:35 UA pH 5.5 Last Edit by Lillian Palacios on 05/30/23 13:35 UA Blood 0 Geo/uL Last Edit by Lillian Palacios on 05/30/23 13:35 UA Specific [place] 1.030 Last Edit by Lillian Palacios on 05/30/23 13:35 UA Ketone Negative Last Edit by Lillian Palacios on 05/30/23 13:35 UA Bilirubin 0 mg/dL Last Edit by Lillian Palacios on 05/30/23 13:35 UA Glucose 0 mg/dL Last Edit by Lillian Palacios on 05/30/23 13:35 Results Reviewed Results Reviewed: Laboratory Last Values Urine pH (Auto) 5.5 05/30/23 13:23 Specific [place] (Auto) 1.030 05/30/23 13:23 Urine Protein (Auto) 15 mg/dL 05/30/23 13:23 Glucose (UA)(Auto) 0 mg/dL 05/30/23 13:23 Urine Ketones (Auto) Negative 05/30/23 13:23 Urine Blood (Auto) 0 Geo/uL 05/30/23 13:23 Urine Nitrite (Auto) Negative 05/30/23 13:23 Urine Bilirubin (Auto) 0 mg/dL 05/30/23 13:23 Urine Urobilinogen (Auto) 0.2 mg/dL 05/30/23 13:23 Leukocyte Esterase (Auto) 125 Brandon/uL 05/30/23 13:23 Assessment & Plan Assessment & Plan (1) Nocturia: Code(s): R35.1 - Nocturia (2) Urinary frequency: Code(s): R35.0 - Frequency of micturition (3) Urge incontinence: Code(s): N39.41 - Urge incontinence Plan In office urinalysis results reviewed with the patient today. PVR 2 mL. Discussed sending urine out for further microgen testing for further assessment evaluation as patient reporting dysuria in 2+ leukocytes noted on urinalysis today. Continue Myrbetriq 25mg daily. Continue Estrace cream as discussed and prescribed Discussed and stressed the importance of limiting/quitting smoking for improvement in lower urinary tract symptoms as well as overall health and well-being. Discussed bladder triggers/irritants. Discussed importance of scheduled toileting Discussed, educated, encouraged to drink plenty of water daily. Follow-up with nursing for microgen testing as not enough urine in today sample for send out Follow-up in office in 3 months with PVR; or sooner with any issues, concerns, and or questions. Orders: Orders AMB Urinalysis Automated Today Z13.9 - Encounter for screening, unspecified AMB Post Void Residual by ultrasound Today N39.41 - Urge incontinence Medications: New mirabegron ER (Myrbetriq) 25 mg PO DAILY 30 days 90 tabs 1RF N30.10 - Interstitial cystitis (chronic) without hematuria, N32.81 - Overactive bladder, R35.1 - Nocturia, R39.15 - Urgency of urination Patient Instructions: The patient had an opportunity to ask questions regarding the treatment plan. All questions were answered. Physical exam, labs, and imaging were discussed and reviewed in detail. As well as risks, benefits, and discussion of treatment choices. No major barriers to understanding were identified. The patient expressed understanding and agreement with the above treatment plan. The patient was made aware they should contact our office by phone for worsening of their current condition, the appearance of new symptoms, or with any questions or concerns. Compliance is encouraged with any medications and follow up testing that is ordered. It is a privilege to be allowed the opportunity to participate in? your urological care.? Again, if you have any questions or concerns If you have any questions or concerns please do not hesitate to contact me. The office is [phone]. This note is constructed using voice recognition software. While every effort has been made to ensure accuracy machine cloth measurer errors may have been included. Yours sincerely, LUCERO Dubois Coding Level of Care Code Est Pt Level 3 (91471) Diagnoses Nocturia R35.1 Urinary frequency R35.0 Urge incontinence N39.41 CPT Codes Post Residual Void - PVR CPT Code: 75695-Eozx Void Residual by ultrasound ([id number])
== END 2023-05-30 13:50 | disposition home or self-care (01) ==
PROVIDERS: PCP Internal Medicine; Visit Provider Nurse Practitioner Family
DX: R35.1 Nocturia (principal); R35.0 Frequency of micturition; N39.41 Urge incontinence
CPT/HCPCS: 99213

== ENCOUNTER → 2023-05-30 13:07 | Outpatient (BNVA) | payer MEDICARE, MEDICAID, SELFPAY | PROVIDERS: PCP Internal Medicine; Visit Provider Nurse Practitioner Family | DX: N39.41 Urge incontinence (principal); R35.1 Nocturia; R35.0 Frequency of micturition; Z79.899 Other long term (current) drug therapy | CPT/HCPCS: 51798; 81003; 99212 ==

== ENCOUNTER → 2023-06-04 13:07 | Outpatient (BNVA) | payer MEDICARE, MEDICAID, SELFPAY | PROVIDERS: PCP Internal Medicine; Visit Provider Nurse Practitioner Family ==

== ENCOUNTER → 2023-07-25 14:52 | Outpatient (BNVA) | payer MEDICARE, MEDICAID, SELFPAY | PROVIDERS: PCP Internal Medicine; Visit Provider Nurse Practitioner Family ==

== ENCOUNTER 2023-09-20 11:18 | Outpatient (REF) | payer MEDICARE, MEDICAID, SELFPAY ==
--- NOTE | ~2023-09-20 | XR_ITS ---
EXAMINATION: XR ELBOW, LEFT CLINICAL INFORMATION: Pain and swelling of one month's duration. COMPARISON: None available. TECHNIQUE: AP, lateral, and oblique views of the left elbow. FINDINGS: Bony alignment and mineralization are normal. No fracture, dislocation or joint effusion is seen. There are small enthesophytes noted arising from the lateral and medial epicondyles. There is soft tissue swelling superficial to the olecranon process, suggesting possible olecranon bursitis. XR/XR elbow LT min 3V IMPRESSION: 1. No left elbow fracture, dislocation or joint effusion is noted. 2. Findings suggest left olecranon bursitis.
== END 2023-09-20 11:19 | disposition home or self-care (01) ==
LOC: HO.HHCX 11:18
PROVIDERS: Visit Provider Nurse Practitioner Primary Care
DX: M25.422 Effusion, left elbow (principal); M25.522 Pain in left elbow
CPT/HCPCS: 73080

== ENCOUNTER 2023-11-07 09:49 | Outpatient (REF) | payer OTHER, SELFPAY | END 2023-11-07 09:50 | disposition home or self-care (01) | LOC: HO.HOSX 09:49 | PROVIDERS: Visit Provider Physician Assistant | DX: Z13.89 Encounter for screening for other disorder (principal) ==

== ENCOUNTER 2023-11-28 09:04 | Outpatient (REF) | payer OTHER, SELFPAY ==
--- NOTE | ~2023-11-28 | XR_ITS ---
EXAMINATION: XR ELBOW, LEFT CLINICAL INFORMATION: Pain in unspecified elbow. COMPARISON: 09/20/2023. TECHNIQUE: AP, lateral, and oblique views of the left elbow. FINDINGS: Redemonstration of small enthesophytes along the medial and lateral epicondyles. Increased conspicuity of faint soft tissue calcification adjacent to the coronoid process of the ulna of indeterminate etiology. XR/XR elbow LT min 3V IMPRESSION: 1. Redemonstration of small enthesophytes along the medial and lateral epicondyles. 2. Increased conspicuity of faint soft tissue calcification adjacent to the coronoid process of the ulna of indeterminate etiology.
== END 2023-11-28 09:05 | disposition home or self-care (01) ==
LOC: HO.HOSX 09:04
PROVIDERS: Visit Provider Physician Assistant
DX: M70.22 Olecranon bursitis, left elbow (principal)
CPT/HCPCS: 73080; 99202

== ENCOUNTER 2023-11-28 13:48 | Outpatient (AMB) | payer OTHER, SELFPAY ==
--- NOTE | 2023-11-28 13:52 | MHC.OFFVIS ---
Intake Vital Signs 11/28/23 14:10 Height 5 ft 4 in Weight 209 lb BMI 35.9 Handedness Right Intake Visit Reasons: NewPt - left elbow pain Intake Note: Karina is a 67 year old right hand dominant female who presents today as a new patient for a evaluation of her left elbow pain. NO hx of injury. Was last seen with ALEK on 06/30/20. She states ongoing pain for 3 months. Patient rapports that her pain stays on the elbow. She express that she has off and on numbness in her hands for about 2 - 3 weeks. Pain is worse when she is applying pressure to the area when she is laying or just placing her elbow on a flat surface. Allergies No Known Allergies Allergy (Mild, Verified 11/28/23 14:08) UNKNOWN HPI NewPt - left elbow pain HPI Details 67-year-old right hand dominant female who presents in the office today, as a new patient, for an evaluation of left elbow pain. Patient reports no prior injury. She reports ongoing pain for the past 3 months. Denies radiation of pain. Confirms intermittent numbness in the bilateral hands for 2-3 weeks. She states pain is worse when applying pressure to the area when laying down or just placing her elbow on a flat surface. Patient was seen in the office by Dr. Cerda on 06/30/2020. [facility] Medical History Costochondral chest pain OAB (overactive bladder) Nocturnal hypoxemia Maternal UTI (urinary tract infection), recurrent Urgency incontinence Urge incontinence Cough COPD (chronic obstructive pulmonary disease) Obesity JOSE RAMON (obstructive sleep apnea) Social History (Updated 11/28/23 @ 14:10 by Isis Dumont) Alcohol intake: never Patient Tobacco Use Status: Current everyday Tobacco user Cigarette Packs Per Day: 0.5 Cigarettes Per Day: 10.0 Current occupational status: disabled Current occupation: Right Handed Review of Systems Const All systems reviewed & are unremarkable except as noted in HPI and below Physical Exam Vital Signs: BMI result Body Mass Index 35.9 Const General: cooperative, healthy appearing and no acute distress Resp Effort & Inspection: normal respiratory effort and able to speak in complete sentences Cardio Rate: regular rate Peripheral pulses: Peripheral pulses 2+ throughout GI Palpation (GI): Soft to palpation Skin Lesions: no lesions Rashes: no rashes Extrem Other: Left elbow: Olecranon bursitis inflammation over the bursa. No tenderness to palpation. Full ROM. NVI. Assessment & Plan Assessment & Plan (1) Olecranon bursitis, left elbow: Code(s): M70.22 - Olecranon bursitis, left elbow Plan Ms. Dumont is a 67-year-old right hand dominant female who presents in the office today, as a new patient, for an evaluation of left elbow pain. Patient reports no prior injury. She reports ongoing pain for the past 3 months. Denies radiation of pain. Confirms intermittent numbness in the bilateral hands for 2-3 weeks. She states pain is worse when applying pressure to the area when laying down or just placing her elbow on a flat surface. Patient was seen in the office by Dr. Cerda on 06/30/2020. Patient was educated that strict compression is to be applied. She has no ROM restrictions. Follow up will be PRN, or sooner if needed. X-rays of the left elbow which were obtained while in the office today and were reviewed by me, Jannie Cunningham PA-C, revealed no acute fracture or dislocation. Edema noted over the olecranon bursa. X-rays of the left elbow, obtained on 09/20/2023, revealed: 1. No left elbow fracture, dislocation or joint effusion is noted. 2. Findings suggest left olecranon bursitis. Orders: Orders XR elbow LT min 3V Today M25.529 - Pain in unspecified elbow Patient Instructions: Scribed by Frances Chris medical secretary, for Jannie Cunningham PA-C on 11/28/2023 at 1:49 pm, EST. Coding Level of Care Code New Pt Level 3 (20263) Diagnoses Olecranon bursitis, left elbow M70.22
[2023-11-28 14:10] VITALS: BMI 35.9
== END 2023-11-28 15:07 | disposition home or self-care (01) ==
LOC: HO.HOS 13:48
PROVIDERS: PCP Internal Medicine; Visit Provider Physician Assistant
DX: M70.22 Olecranon bursitis, left elbow (principal)
CPT/HCPCS: 99203

== ENCOUNTER 2024-01-21 14:55 | Outpatient (AMB) | payer OTHER, SELFPAY ==
[2024-01-21 15:08] VITALS: BP 112/70; PULSE 75; O2SAT 99; BMI 36.6
--- NOTE | 2024-01-21 15:08 | A.OFFVIS_ITS ---
Vital Signs 01/21/24 15:08 Height 5 ft 4 in Weight 213 lb BMI 36.6 BP 112/70 Blood Pressure Location Lt brachial Position Sitting Pulse 75 Pulse Source Pulse Oximeter Pulse Oximetry (%) 99 Oxygen Delivery Method Room Air Intake Visit Reasons: COPD Intake Note: pt is here for follow up of JOSE RAMON and copd, and feels good, she would like to try new mask, but she does state that even though she is wearing her cpap she feels like she is choking. pt has been 2 weeks no smoking!! 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: No Allergies No Known Allergies Allergy (Mild, Verified 01/21/24 15:13) UNKNOWN Medication List - Last Reconciled 01/21/24 by Oleksandr Ortega MD albuterol sulfate 90 mcg/actuation 2 puffs inhalation Q4H PRN amitriptyline 25 mg PO BEDTIME aripiprazole mg PO aripiprazole 2 mg PO DAILY bupropion HCl SR 200 mg PO BID citalopram (Celexa) 20 mg PO DAILY citalopram 40 mg PO QAM estradiol 0.01%(0.1mg/gram) vaginally 3 times a week; pea sized amount to urethra 3 times a week 30 days fluconazole 150 mg PO Q3D 2 doses gabapentin 400 mg PO TID Incruse Ellipta 62.5 mcg/actuation (umeclidinium) 1 inh PO DAILY NS metronidazole (Flagyl) 375 mg PO BID 7 days mirabegron ER (Myrbetriq) 25 mg PO DAILY 30 days mirtazapine 15 mg PO BEDTIME morphine ER 30 mg PO DAILY naloxone 4 mg/actuation 0 sprays intranasal verapamil 40 mg PO BID Do you need a note to return to daycare/school/sports/work: No HPI HPI COPD: Details: THIS 68 YEARS OLD VERY PLEASANT FEMALE IS HERE FOR HER ROUTINE FOLLOW-UP AFTER 6 MONTHS. SHE IS BEING FOLLOWED FOR OBSTRUCTIVE SLEEP APNEA AND ALSO MILD OBSTRUCTIVE AIRWAY DISORDER. SHE HAS BEEN USING CPAP VERY REGULARLY, SLEEPING WELL. SHE CONTINUE TO USE FULLFACE MASK WHICH IS QUITE OLD. NOW SHE COMPLAINS OF SOME CHOKING EPISODE DURING THE NIGHT. DURING THE DAYTIME SHE HAS VERY LITTLE COUGH OR SHORTNESS OF BREATH. SHE CONTINUES TO USE INCRUSE ELLIPTA ONCE A DAY AND PROAIR ONLY ONCE IN A WHILE. HER WEIGHT REMAINS UNCHANGED. COUNTS INCLUDE 234 BEDS AT THE [facility] Medical History Costochondral chest pain OAB (overactive bladder) Nocturnal hypoxemia Maternal UTI (urinary tract infection), recurrent Urgency incontinence Urge incontinence Cough COPD (chronic obstructive pulmonary disease) Obesity JOSE RAMON (obstructive sleep apnea) Social History Alcohol intake: never Patient Tobacco Use Status: Current someday Tobacco user Cigarette Packs Per Day: 0.5 Cigarettes Per Day: 10.0 Current occupational status: disabled Current occupation: Right Handed Review of Systems Const All systems reviewed & are unremarkable except as noted in HPI and below Eyes Reports no additional complaints ENT Reports nasal congestion (MILD INTERMITTENT) Card Reports chest pain ( nonspecific discomfort in the left upper chest), Denies irregular heart rhythm, Denies leg edema and Denies dyspnea on exertion Resp Reports as per HPI, Denies cough, Denies dyspnea on exertion and Denies wheezing GI Reports no additional complaints Reports urinary urgency Musc Reports back pain (DUE TO COUGH) Skin/Breast Reports system reviewed and no additional complaints, except as documented Neuro Reports no additional complaints Psych Reports no additional complaints Aller/Immun Denies wheezing Physical Exam Vital Signs: Last Vital Signs Pulse 75 01/21/24 15:08 BP 112/70 01/21/24 15:08 Pulse Ox 99 01/21/24 15:08 Oxygen Delivery Method Room Air 01/21/24 15:08 BMI result Body Mass Index 36.6 Const General: healthy appearing, comfortable, no acute distress, alert and awake Orientation/consciousness: patient oriented x3 HEENT Head: Yes normal to inspection General nose exam: No nasal polyps present and No nasal discharge present Face and sinus: Yes sinuses nontender Mouth: oropharynx normal Throat: Yes posterior oropharynx normal Eyes General: appearance normal, both eyes and all related structures Neck Neck: Yes normal visual inspection, Yes no lymphadenopathy, Yes trachea midline and Yes no JVD Thyroid: Thyroid normal Chest Chest palpation & inspection: normal inspection of the chest, normal palpation of entire chest wall and no tenderness Resp Other: PERCUSSION NOTE IS RESONANT BREATH SOUNDS ARE DISTANT WITH PROLONGED EXPIRATORY PHASE, NO WHEEZES OR RHONCHI ARE HEARD TODAY. Cardio Palpation: normal PMI Rate: regular rate Rhythm: regular rhythm Heart sounds: no gallops and no murmurs GI Palpation (GI): Soft to palpation, nontender, No hepatosplenomegaly present and no masses Auscultation: normal bowel sounds Back/Spine/Pelvis Thoracic/Lumbar Spine: thoracic and lumbar spine normal to inspection Skin General skin exam: no rashes or lesions noted Neuro General: patient oriented x3 and no focal motor deficits Cranial nerves: Yes CN's II-XII intact bilaterally Extrem General: Yes normal to inspection, Yes no clubbing, cyanosis or edema and Yes no calf tenderness Psych Appearance: grossly normal Speech and movement: Normal speech and movement present Results Reviewed Results Reviewed: COMPLIANCE REPORT FOR THE LAST 30 NIGHTS IS REVIEWED. SHE HAS USED 30/30 NIGHTS, 100%. AVERAGE USE IT PER NIGHT AND DAY IS 11 HOURS 6 MINUTE( SHE DOES TAKE A NAP DURING THE DAYTIME AND PUTS THE CPAP ON ) Assessment & Plan Assessment & Plan (1) Obesity: Comment: CHRONIC PROBLEM AND REMAINS UNCHANGED. Code(s): E66.9 - Obesity, unspecified Category: Medical Plan: DISCUSSED WITH HER . WEIGHT IS A BIG PROBLEM AND SHE SHOULD TRY TO LOSE WEIGHT BY CUTTING DOWN THE CALORIES AND TRYING TO DO SOME EXERCISE AT HOME. UNFORTUNATELY SHE IS NOT ABLE TO PARTICIPATE IN ANY OUTSIDE WEIGHT MANAGEMENT PROGRAM. (2) JOSE RAMON (obstructive sleep apnea): Comment: WELL KNOWN CASE OF OBSTRUCTIVE SLEEP APNEA. PATIENT IS VERY COMPLIANT IN USING CPAP AND IS BENEFITTING, NO ISSUES RELATED TO THE CPAP MASK OR MACHINE. HOWEVER LATELY SHE HAS SOME CHOKING EPISODE DURING THE NIGHT. SHE THINKS IT HAS DUE TO THE OLD FACEMASK , SHE HAS NOT CHANGED IT FOR MORE THAN A YEAR. Code(s): G47.33 - Obstructive sleep apnea (adult) (pediatric) Category: Medical Plan: COMMENDED FOR GOOD COMPLIANCE. WILL SEND ORDER FOR NEW SUPPLIES AND SHE SHOULD GET A DREAMWEAR FULLFACE MASK. (3) COPD (chronic obstructive pulmonary disease): Comment: SHE HAS PAST DIAGNOSIS OF COPD. BUT LAST SPIROMETRY WAS ESSENTIALLY NORMAL. I THINK SHE HAS THE REACTIVE AIRWAYS//BRONCHIAL ASTHMA SHE COMPLAINS OF COUGH AND SOME WHEEZING ESPECIALLY AT NIGHT, Code(s): J44.9 - Chronic obstructive pulmonary disease, unspecified Category: Medical Plan: [place] : CONTINUE TO USE INCRUSE ELLIPTA 1 INHALATION DAILY. USE ALBUTEROL HFA 1 OR 2 PUFFS EVEN BEFORE PUTTING ON THE CPAP AND VA AN DURING THE NIGHT. (4) Nocturnal hypoxemia: Comment: SHE HAS NOCTURNAL HYPOXEMIA ,IN ADDITION TO OBSTRUCTIVE SLEEP APNEA. Code(s): G47.34 - Idiopathic sleep related nonobstructive alveolar hypoventilation Category: Medical Plan: ADVISED TO CONTINUE O2 2 L/MINUTE AT NIGHT , ALONG WITH THE CPAP. Coding Level of Care Code Est Pt Level 4 (52660) Diagnoses Obesity E66.9 JOSE RAMON (obstructive sleep apnea) G47.33 COPD (chronic obstructive pulmonary disease) J44.9 Nocturnal hypoxemia G47.34
== END 2024-01-21 15:27 | disposition home or self-care (01) ==
PROVIDERS: PCP Internal Medicine; Visit Provider Internal Medicine
DX: E66.9 Obesity, unspecified (principal); G47.33 Obstructive sleep apnea (adult) (pediatric); J44.9 Chronic obstructive pulmonary disease, unspecified; G47.34 Idiopathic sleep related nonobstructive alveolar hypoventilation
CPT/HCPCS: 99214

== ENCOUNTER → 2024-01-21 14:55 | Outpatient (BNVA) | payer OTHER, SELFPAY | PROVIDERS: PCP Internal Medicine; Visit Provider Internal Medicine | DX: J44.9 Chronic obstructive pulmonary disease, unspecified (principal); G47.33 Obstructive sleep apnea (adult) (pediatric); G47.34 Idiopathic sleep related nonobstructive alveolar hypoventilation; E66.9 Obesity, unspecified; Z68.36 Body mass index [BMI] 36.0-36.9, adult | CPT/HCPCS: 99212 ==

== ENCOUNTER 2024-04-10 11:56 | Outpatient (AMB) | payer OTHER, SELFPAY ==
--- NOTE | 2024-04-10 11:56 | MHC.OFFVIS ---
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: No Accompanied by: Self / Same As Patient Allergies No Known Allergies Allergy (Mild, Verified 04/10/24 12:10) UNKNOWN Medication List - Last Reconciled 04/10/24 by JM Dubois-IRMA albuterol sulfate 90 mcg/actuation 2 puffs inhalation Q4H PRN amitriptyline 25 mg PO BEDTIME aripiprazole mg PO aripiprazole 2 mg PO DAILY bupropion HCl SR 200 mg PO BID citalopram (Celexa) 20 mg PO DAILY citalopram 40 mg PO QAM estradiol 0.01%(0.1mg/gram) vaginally 3 times a week; pea sized amount to urethra 3 times a week 30 days fluconazole 150 mg PO Q3D 2 doses gabapentin 400 mg PO TID Incruse Ellipta 62.5 mcg/actuation (umeclidinium) 1 inh PO DAILY NS metronidazole (Flagyl) 375 mg PO BID 7 days mirabegron ER (Myrbetriq) 25 mg PO DAILY 30 days mirtazapine 15 mg PO BEDTIME morphine ER 30 mg PO DAILY naloxone 4 mg/actuation 0 sprays intranasal verapamil 40 mg PO BID HPI Comments Details: Karina is a pleasant 68-year-old female patient of Dr. Rajan. She has a past medical history of overactive bladder, urinary incontinence, COPD, and obstructive sleep apnea. She is being followed up on today via video telehealth as appointment was switched from in-person to telehealth due to patient not feeling well. She reports noting runny nose and general malaise over the last 2-3 days. She discusses planning to seek urgent care services to further assess if she has COVID. In discussion with the patient today she reports noting significant improvement in urinary frequency with 25 mg of Myrbetriq as prescribed during last office visit however does still have episodes of frequency. Previous workup has included a retroperitoneal ultrasound noting no renal mass or calculus seen bilaterally. The bladder is well distended and normal. Bilateral ureteral jets are demonstrated. When asked patient reporting dysuria, nocturia, and urinary frequency. She otherwise denies incontinence, hematuria, dysuria, foul smelling urine, changes to urinary stream, flank pain, fever, and or chills. She otherwise offers no other issues or concerns at this time. [facility] Medical History Costochondral chest pain OAB (overactive bladder) Nocturnal hypoxemia Maternal UTI (urinary tract infection), recurrent Urgency incontinence Urge incontinence Cough COPD (chronic obstructive pulmonary disease) Obesity JOSE RAMON (obstructive sleep apnea) Social History Alcohol intake: never Patient Tobacco Use Status: Current someday Tobacco user Cigarette Packs Per Day: 0.5 Cigarettes Per Day: 10.0 Current occupational status: disabled Current occupation: Right Handed Review of Systems Const Reports as per HPI Eyes Reports no additional complaints ENT Reports as per HPI Card Reports no additional complaints Resp Reports as per HPI GI Reports no additional complaints Reports as per HPI Neuro Reports no additional complaints Psych Reports no additional complaints Endo Reports no additional complaints Physical Exam Const General: cooperative, healthy appearing, comfortable, no acute distress, well developed, alert and awake Orientation/consciousness: patient oriented x3 Resp Effort & Inspection: normal respiratory effort and able to speak in complete sentences Neuro General: patient oriented x3 Psych Speech and movement: Clear speech present Affect: normal affect Attitude: cooperative Thought process: Normal thought process present Thought content: Normal thought content present Insight: Fair insight present (Psych) Judgement: Fair judgement present (Psych) Telehealth Telehealth Telehealth Platform: Telephone Location of provider rendering services: practice address Location of patient: address on file Patient Identification confirmed using: Name, : Yes Telehealth method: video Patient verbally consented to treatment: Yes Patient verbally consented to billing insurance company: Yes Patient informed of any privacy concerns related to visit: Yes Minutes spent on Phone/Video with Pt.: 15 Assessment & Plan Assessment & Plan (1) Urinary frequency: Code(s): R35.0 - Frequency of micturition Category: Medical (2) Urgency incontinence: Code(s): N39.41 - Urge incontinence Category: Medical (3) Nocturia: Code(s): R35.1 - Nocturia Category: Medical (4) Urge incontinence: Code(s): N39.41 - Urge incontinence Category: Medical Plan Continue Myrbetriq; will increase to 50 mg daily as discussed; prescription provided. Continue Estrace cream as discussed and prescribed Discussed and stressed the importance of limiting/quitting smoking for improvement in lower urinary tract symptoms as well as overall health and well-being. Discussed bladder triggers/irritants. Discussed importance of scheduled toileting. Follow-up in office in 3 months with PVR; or sooner with any issues, concerns, and or questions. Medications: Changed From mirabegron ER (Myrbetriq) 25 mg PO DAILY 30 days 90 tabs 0RF N30.10 - Interstitial cystitis (chronic) without hematuria, N32.81 - Overactive bladder, R35.1 - Nocturia, R39.15 - Urgency of urination To mirabegron ER (Myrbetriq) 50 mg (2 x 25 mg) PO DAILY 90 days 180 tabs 0RF N30.10 - Interstitial cystitis (chronic) without hematuria, N32.81 - Overactive bladder, R35.1 - Nocturia, R39.15 - Urgency of urination Patient Instructions: The patient had an opportunity to ask questions regarding the treatment plan. All questions were answered. Physical exam, labs, and imaging were discussed and reviewed in detail. As well as risks, benefits, and discussion of treatment choices. No major barriers to understanding were identified. The patient expressed understanding and agreement with the above treatment plan. The patient was made aware they should contact our office by phone for worsening of their current condition, the appearance of new symptoms, or with any questions or concerns. Compliance is encouraged with any medications and follow up testing that is ordered. It is a privilege to be allowed the opportunity to participate in? your urological care.? Again, if you have any questions or concerns If you have any questions or concerns please do not hesitate to contact me. The office is [phone]. This note is constructed using voice recognition software. While every effort has been made to ensure accuracy sewing machine adjuster errors may have been included. Yours sincerely, LUCERO Dubois Coding Level of Care Code Tele Est Pt Level 3 (58170) Diagnoses Urinary frequency R35.0 Urgency incontinence N39.41 Nocturia R35.1
== END 2024-04-10 12:10 | disposition home or self-care (01) ==
LOC: HO.HUSH 11:56
PROVIDERS: PCP Internal Medicine; Visit Provider Nurse Practitioner Family
DX: R35.0 Frequency of micturition (principal); N39.41 Urge incontinence; R35.1 Nocturia
CPT/HCPCS: 99213

== ENCOUNTER → 2024-04-10 11:56 | Outpatient (BNVA) | payer OTHER, SELFPAY | PROVIDERS: PCP Internal Medicine; Visit Provider Nurse Practitioner Family ==

== ENCOUNTER 2024-07-28 13:56 | Outpatient (AMB) | payer OTHER, SELFPAY ==
[2024-07-28 14:05] VITALS: BP 122/70; PULSE 90; O2SAT 100; BMI 39.9
--- NOTE | 2024-07-28 14:05 | MHC.OFFVIS ---
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: No Allergies No Known Allergies Allergy (Mild, Verified 07/28/24 14:18) UNKNOWN Medication List - Last Reconciled 07/28/24 by Oleksandr Ortega MD albuterol sulfate 90 mcg/actuation 2 puffs PO Q4H PRN 30 days amitriptyline 25 mg PO BEDTIME aripiprazole mg PO aripiprazole 2 mg PO DAILY bupropion HCl SR 200 mg PO BID citalopram (Celexa) 20 mg PO DAILY citalopram 40 mg PO QAM estradiol 0.01%(0.1mg/gram) vaginally 3 times a week; pea sized amount to urethra 3 times a week 30 days fluconazole 150 mg PO Q3D 2 doses gabapentin 400 mg PO TID Incruse Ellipta 62.5 mcg/actuation (umeclidinium) 1 inh PO DAILY NS metronidazole (Flagyl) 375 mg PO BID 7 days mirabegron ER (Myrbetriq) 50 mg (2 x 25 mg) PO DAILY 90 days mirtazapine 15 mg PO BEDTIME morphine ER 30 mg PO DAILY naloxone 4 mg/actuation 0 sprays intranasal verapamil 40 mg PO BID Do you need a note to return to daycare/school/sports/work: No HPI HPI COPD: Details: 68 YEARS OLD FEMALE WITH GROSS OBESITY, OBSTRUCTIVE SLEEP APNEA, AND COPD, IS HERE FOR ROUTINE FOLLOW-UP AFTER 4 MONTHS. SHE HAS UNDERGONE LAPAROSCOPIC CHOLECYSTECTOMY JUST. LAST WEEK AND IS RECOVERING FROM THAT USES CPAP VERY REGULARLY AND ACTUALLY UP TO 10 HOURS EVERY DAY. HER MAIN COMPLAINT IS ONGOING COUGH WHICH IS WORSE SINCE HER RECENT SURGERY, THE COUGH IS INTERMITTENTLY PRODUCTIVE OF WHITE MUCUS. [facility] Medical History Costochondral chest pain OAB (overactive bladder) Nocturnal hypoxemia Maternal UTI (urinary tract infection), recurrent Urgency incontinence Urge incontinence Cough COPD (chronic obstructive pulmonary disease) Obesity JOSE RAMON (obstructive sleep apnea) Social History Alcohol intake: never Patient Tobacco Use Status: Current someday Tobacco user Cigarette Packs Per Day: 0.5 Cigarettes Per Day: 10.0 Current occupational status: disabled Current occupation: Right Handed Review of Systems Const All systems reviewed & are unremarkable except as noted in HPI and below Eyes Reports no additional complaints ENT Reports nasal congestion (MILD INTERMITTENT) Card Reports chest pain ( nonspecific discomfort in the left upper chest), Denies irregular heart rhythm, Denies leg edema and Denies dyspnea on exertion Resp Reports as per HPI, Denies cough, Denies dyspnea on exertion and Denies wheezing GI Reports no additional complaints Reports urinary urgency Musc Reports back pain (DUE TO COUGH) Skin/Breast Reports system reviewed and no additional complaints, except as documented Neuro Reports no additional complaints Psych Reports no additional complaints Aller/Immun Denies wheezing Physical Exam Const General: healthy appearing, comfortable, no acute distress, alert and awake Orientation/consciousness: patient oriented x3 HEENT Head: Yes normal to inspection General nose exam: No nasal polyps present and No nasal discharge present Face and sinus: Yes sinuses nontender Mouth: oropharynx normal Throat: Yes posterior oropharynx normal Eyes General: appearance normal, both eyes and all related structures Neck Neck: Yes normal visual inspection, Yes no lymphadenopathy, Yes trachea midline and Yes no JVD Thyroid: Thyroid normal Chest Chest palpation & inspection: normal inspection of the chest, normal palpation of entire chest wall and no tenderness Resp Other: PERCUSSION NOTE IS RESONANT BREATH SOUNDS ARE DISTANT WITH PROLONGED EXPIRATORY PHASE, NO WHEEZES OR RHONCHI ARE HEARD TODAY. Cardio Palpation: normal PMI Rate: regular rate Rhythm: regular rhythm Heart sounds: no gallops and no murmurs GI Palpation (GI): Soft to palpation, nontender, No hepatosplenomegaly present and no masses Auscultation: normal bowel sounds Back/Spine/Pelvis Thoracic/Lumbar Spine: thoracic and lumbar spine normal to inspection Skin General skin exam: no rashes or lesions noted Neuro General: patient oriented x3 and no focal motor deficits Cranial nerves: Yes CN's II-XII intact bilaterally Extrem General: Yes normal to inspection, Yes no clubbing, cyanosis or edema and Yes no calf tenderness Psych Appearance: grossly normal Speech and movement: Normal speech and movement present Results Reviewed Results Reviewed: COMPLIANCE REPORT FOR THE LAST 30 NIGHTS IS REVIEWED. SHE USES 100% OF THE NIGHTS. AVERAGE USAGE PER DAY IS UP TO 10 HOURS BECAUSE IN ADDITION TO USING AT NIGHT HE ALSO USES IT FOR ABOUT 2 HOURS DURING THE DAYTIME. RESIDUAL AHI ONLY 0.6 Assessment & Plan Assessment & Plan (1) Obesity: Comment: CHRONIC PROBLEM AND REMAINS UNCHANGED. BMI=39.9 Code(s): E66.9 - Obesity, unspecified Category: Medical Plan: DISCUSSED ABOUT HER OBESITY, SHE IS TRYING TO WATCH HER DIET. HOWEVER SHE CAN NOT DO MUCH EXERCISE, DIFFICULT FOR. HER TO LOSE WEIGHT (2) JOSE RAMON (obstructive sleep apnea): Comment: WELL KNOWN CASE OF OBSTRUCTIVE SLEEP APNEA. PATIENT IS VERY COMPLIANT IN USING CPAP AND IS BENEFITTING, NO ISSUES RELATED TO THE CPAP MASK OR MACHINE. Code(s): G47.33 - Obstructive sleep apnea (adult) (pediatric) Category: Medical Plan: COMMENDED FOR GOOD COMPLIANCE AND ADVISED TO CONTINUE TO USE CPAP EVERY NIGHT AND ALSO P.R.N. DURING THE DAYTIME . (3) COPD (chronic obstructive pulmonary disease): Comment: SHE HAS PAST DIAGNOSIS OF COPD. BUT LAST SPIROMETRY WAS ESSENTIALLY NORMAL. I THINK SHE HAS THE REACTIVE AIRWAYS//BRONCHIAL ASTHMA SHE COMPLAINS OF COUGH AND SOME WHEEZING ESPECIALLY AT NIGHT, Code(s): J44.9 - Chronic obstructive pulmonary disease, unspecified Category: Medical Plan: CONTINUE TO USE INCRUSE ELLIPTA 1 INHALATION DAILY AND ALBUTEROL HFA 2 PUFFS Q 6 HOURS P.R.N. (4) Cough: Comment: HER COUGH IS MAINLY RELATED TO HER COPD, EXTERNAL ALLERGIES ,OBESITY AND NARROW UPPER AIRWAY PASSAGES. TRIED VARIOUS COUGH MEDICATIONS WITHOUT MUCH HELP. ALSO GARGLE THE THROAT WITH WARM SALT AND WATER T.I.D. Code(s): R05 - Cough Category: Medical Plan: DISCUSSED BY THE COUGH, ADVISED TO USE ROBITUSSIN DM 2 TSP AT NIGHTTIME. AND PLAIN ROBITUSSIN 2 TSP T.I.D. P.R.N. DURING THE DAYTIME. Coding Level of Care Code Est Pt Level 3 (97479) Diagnoses Obesity E66.9 JOSE RAMON (obstructive sleep apnea) G47.33 COPD (chronic obstructive pulmonary disease) J44.9 Cough R05
--- OUTSIDE RECORDS SUMMARY | 2024-07-29 21:51 | XMS_ITS | Continuity of Care Document ---
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 Driver Name Role Phone Nat HERNANDEZ, Dio Arechiga Primary Care Physi ramon [place] [facility] [place]): [place] - 07/23/[address] [address]- Discharge Disposition: A-D/C Home Attending Physician: Wilbert MARIA MD (Surgeon), Ernestine Admitting Physician: Wilbert MARIA MD (Surgeon), Ernestine Referring Physician: Wilbert MARIA MD (Surgeon), Ernestine Encounter Type: Disch Daystay Allergies, Adverse Reactions, Alerts No Known Allergies Medications Advair Diskus 100 mcg-50 mcg inhalation powder 2, puffs, Inhalation, 2 times a day, 0 Refills, Maintenance Start Date: 01/22/07 Status: Ordered Repeat number: 1 amitriptyline 25 mg oral tablet 25 mg, 1, tablet, By Mouth, Daily at bedtime, # 30 tablet, Refills 5, Maintenance, 07/21/24 12:47:00PM EST, Partial fill upon patient request if the prescription is for a schedule II opioid drug. Start Date: 07/21/24 Status: Ordered Quantity: 30.0 Unit: tablet Repeat number: 1 ARIPiprazole 2 mg oral tablet 2 mg, 1, tablet, Daily, Refills 0, Maintenance, 07/21/24 12:41:00 PM EST, Partial fill upon patient request if the prescription is for a schedule II opioid drug. Start Date: 07/21/24 Status: Ordered Repeat number: 1 buPROPion 200 mg/12 hours (SR) oral tablet, extended release 1 tablet = 200 mg, 2 times a day, 0 Refills, Maintenance, 07/21/24 12:41:00 PM EST, Partial fill upon patient request if the prescription is for a schedule II opioid drug. Start Date: 07/21/24 Status: Ordered Repeat number: 1 citalopram 20 mg oral tablet 1 tablet = 20 mg, By Mouth, Daily, 0 Refills, Maintenance, 10/16/10 11:32:46 AM EST Start Date: 10/16/10 Status: Ordered Repeat number: 1 Clonazepam By Mouth, 3 times a day, 0 Refills, Maintenance, 07/09/16 2:46:29 PM EST Start Date: 07/09/16 Status: Ordered Repeat number: 1 gabapentin 400 mg oral capsule 3 times a day, Refills 0, Maintenance, 07/21/24 12:41:00 PM EST, Partial fill upon patient request if the prescription is for a schedule II opioid drug. Start Date: 07/21/24 Status: Ordered Repeat number: 1 Incruse Ellipta 62.5 mcg/inh inhalation powder 1 inhalation = 62.5 mcg, Daily at bedtime, 0 Refills, Maintenance, 07/21/24 12:41:00 PM EST, Partialfill upon patient request if the prescription is for a schedule II opioid drug. Start Date: 07/21/24 Status: Ordered Repeat number: 1 Linzess 145 mcg oral capsule 1 capsule = 145 mcg, By Mouth, Daily, # 30 capsule, 1 Refills, Maintenance, 08/31/16 11:09:09 AM EST, Capsule, [facility] [id number] Start Date: 08/31/16 Stop Date: 10/30/16 Status: Ordered Quantity: 30.0 Unit: capsule Repeat number: 2 mirtazapine 30 mg oral tablet 1 tablet = 30 mg, Daily at bedtime, 0 Refills, Maintenance, 07/21/24 12:41:00 PM EST, Partial fill upon patient request if the prescription is for a schedule II opioid drug. Start Date: 07/21/24 Status: Ordered Repeat number: 1 morphine 30 mg oral capsule 1 capsule = 30 mg, By Mouth, Every 12 hours, PRN as needed for pain, capsule, 0 Refills, Maintenance, 10/16/10 11:34:15 AM EST Start Date: 10/16/10 Status: Ordered Repeat number: 1 Myrbetriq 25 mg oral tablet, extended release 1 tablet = 25 mg, Daily, 0 Refills, Maintenance, 07/21/24 12:41:00 PM EST, Partial fill upon patientrequest if the prescription is for a schedule II opioid drug. Start Date: 07/21/24 Status: Ordered Repeat number: 1 omeprazole 20 mg oral enteric coated capsule 1 capsule = 20 mg, By Mouth, 2 times a day, take 30-60 minutes before meals, # 60 capsule, 5 Refills, Maintenance, 10/16/16 5:08:28 PM EST, EC Capsule, [facility] [id number] Start Date: 10/16/16 Stop Date: 04/14/17 Status: Ordered Quantity: 60.0 Unit: capsule Repeat number: 6 oxyCODONE 5 mg oral tablet 5 mg, 1, tablet, By Mouth, Every 6 hours, PRN, # 18 tablet, Refills 0, Tot. Refills 0, Acute 08/13/24 2:10:00 PM EST, as needed for pain, 07/23/24 2:10:00 PM EST, Route to Pharmacy Electronically, [facility], Partial fill upon patient request if the prescription is for a schedule II opioid drug., 162, cm, 07/23/24 11:37:00 EST, Height, 104.5, kg, 07/23/24 11:37:00 EST, Dry Weight Start Date: 07/23/24 Stop Date: 08/13/24 Status: Ordered Quantity: 18.0 Unit: tablet Repeat number: 1 Oxycodone 5mg Oral Tablet (PACU ONLY) 5 mg, Tablet, By Mouth, Once, in PACU ONLY, PRN for Pain , Moderate, Routine, 07/23/24 1:07:00 PM EST Start Date: 07/23/24 Stop Date: 07/23/24 Status: Completed Repeat number: 1 ProAir HFA 2 puffs, Inhalation, 4 times a day, 0 Refills, 11/25/07 10:24:02 AM EDT Start Date: 11/25/07 Status: Ordered Repeat number: 1 Trazodone Tablet 150 mg, By Mouth, Daily at bedtime, Refills 0, Tot. Refills 0, Maintenance, 06/10/07 2:30:47 PM EDT Start Date: 06/10/07 Status: Ordered Repeat number: 1 Tylenol 325 mg oral tablet 650 mg, 2, tablet, By Mouth, Every 6 hours, PRN, # 120 tablet, Refills 0, Tot. Refills 0, Acute 08/12/24 2:11:00 PM EST, for pain, 07/23/24 2:10:00 PM EST, Route to Pharmacy Electronically, [facility], Partial fill upon patient request if the prescription is for a schedule II opioid drug., 162, cm, 07/23/24 11:37:00 EST, Height, 104.5, kg, 07/23/24 11:37:00 EST, Dry Weight Start Date: 07/23/24 Stop Date: 08/12/24 Status: Ordered Quantity: 120.0 Unit: tablet Repeat number: 1 verapamil 40 mg oral tablet 1 tablet = 40 mg, 2 times a day, 0 Refills, Maintenance, 07/21/24 12:41:00 PM EST, Partial fill uponpatient request if the prescription is for a schedule II opioid drug. Start Date: 07/21/24 Status: Ordered Repeat number: 1 Problem List Condition Confirmation Course Effective Dates Status [facility] atus Informant Bursitis of hip Confirmed Active Obese class II Confirmed Active Piriformis syndrome Confirmed Active Sacroiliac joint pain Confirmed Active Results Radiology Reports * Exam Date Time Procedure Performing Provider Status 07/23/24 1:07 PM C-Arm < 1 Hour Erika Roldan (Verified) Notes: (C-Arm < 1 Hour) Reason For Exam: Lap dinora RESULT: C-Arm < 1 Hour Cholangiogram Intraoperative, C-Arm < 1 Hour INDICATION: Reason: Lap dinora COMPARISONS: None TECHNIQUE: Fluoroscopy support was provided. There was no radiologist in attendance. FLUOROSCOPY TIME: 1 minute 16.4 seconds EXPOSURE: 6.2899 Gycm2 (Dose Area Product) TECHNOLOGIST TIME: 30 minutes FINDINGS: Multiple fluoroscopic images of the right upper quadrant of the abdomen obtained by the portable image intensifier in the operating room during a laparoscopic cholecystectomy show contrast injected through the cystic duct outlining the intrahepatic and extrahepatic biliary tree. There is mild dilatation of the common hepatic and common bile duct without filling defects with free flow of contrast into the duodenum. The port of gastric banding is in the field of view. Multiple filling defects are noted in the gallbladder which is faintly opacified and consistent with multiple gallstones. Please refer to the operative report for more details. IMPRESSION: See above. WSN: [id number] Ordering Physician: Ernestine Atkins Dictated By: Hadley Wheat MD, V Dictated Date/Time: 07/23/24 3:01 pm Reviewed By: Hadley Wheat MD, V Signed By: Hadley Wheat MD, V Signed Date/Time: 07/23/24 3:01 pm Transcribed By: MILE Transcribed Date/Time: 07/23/24 2:59 pm * Exam Date Time Procedure Performing Provider Status 07/23/24 1:07 PM Cholangiogram Intraoperative Erika Roldan (Verified) Notes: (Cholangiogram Intraoperative) Reason For Exam: Lap dinora RESULT: Cholangiogram Intraoperative Cholangiogram Intraoperative, C-Arm < 1 Hour INDICATION: Reason: Lap dinora COMPARISONS: None TECHNIQUE: Fluoroscopy support was provided. There was no radiologist in attendance. FLUOROSCOPY TIME: 1 minute 16.4 seconds EXPOSURE: 6.2899 Gycm2 (Dose Area Product) TECHNOLOGIST TIME: 30 minutes FINDINGS: Multiple fluoroscopic images of the right upper quadrant of the abdomen obtained by the portable image intensifier in the operating room during a laparoscopic cholecystectomy show contrast injected through the cystic duct outlining the intrahepatic and extrahepatic biliary tree. There is mild dilatation of the common hepatic and common bile duct without filling defects with free flow of contrast into the duodenum. The port of gastric banding is in the field of view. Multiple filling defects are noted in the gallbladder which is faintly opacified and consistent with multiple gallstones. Please refer to the operative report for more details. IMPRESSION: See above. WSN: [id number] Ordering Physician: Ernestine Atkins Dictated By: Hadley Wheat MD, V Dictated Date/Time: 07/23/24 3:01 pm Reviewed By: Hadley Wheat MD, V Signed By: Hadley Wheat MD, V Signed Date/Time: 07/23/24 3:01 pm Transcribed By: MILE Transcribed Date/Time: 07/23/24 2:59 pm Vital Signs Most recent to oldest [Reference Range]: 1 2 3 Height 162 cm (07/23/24 11:37 AM) 162 cm (07/21/24 12:47 PM) Weight 104.5 kg (07/23/24 11:37 AM) 99.1 kg (07/21/24 12:47 PM) Oxygen Saturation [94-100 %] 95 % (07/23/24 2:30 PM) 94 % (07/23/24 2:19 PM) 95 % (07/23/24 2:01 PM) Pulse Rate [55-90 bpm] 82 bpm (07/23/24 11:37 AM) Body Mass Index [18.5-24.99 kg/m2] 39.82 kg/m2 *>HHI* (07/23/24 11:37 AM) 37.76 kg/m2 *>HHI* (07/21/24 12:47 PM) Blood Pressure [90-138/55-84 mm Hg] 147/54mm Hg *H* (07/23/24 2:15 PM) 145/54mm Hg *H* (07/23/24 2:00 PM) 166/77mm Hg *H* (07/23/24 1:45 PM) Respiratory Rate [16-30 br/min] 16 br/min (07/23/24 2:19 PM) 21 br/min (07/23/24 1:50 PM) 20 br/min (07/23/24 1:40 PM) Temperature [96.8-100.4 DegF] 97 DegF (07/23/24 1:30 PM) 98 DegF (07/23/24 11:37 AM) Liters per Minute 2 L/min (07/23/24 2:15 PM) 4 L/min (07/23/24 1:45 PM) 6 L/min (07/23/24 1:30 PM) Mode of Delivery (Oxygen) Room air (07/23/24 2:30 PM) Nasal cannula (07/23/24 2:15 PM) Nasal cannula (07/23/24 1:45 PM) Temperature Route Temporal (07/23/24 1:30 PM) Temporal (07/23/24 11:37 AM) Dry Weight 104.5 kg (07/23/24 11:37 AM) 99.1 kg (07/21/24 12:47 PM) Weight Obtained Via Patient/family state d (07/21/24 12:47 PM) Dry Weight Obtained Via Standing scale (07/23/24 11:37 AM) Patient/family stated (07/21/24 12:47 PM) Social History Social History Type Response Smoking Status Current every day sm oker; Other: hasn't smoked in three days ; entered on: 05/31/16 Sex Sex Representation Female (finding) History and physical note * Event Display: History and Physical Hospital Authored Date: * Event Display: History and Physical Hospital Authored Date: Note * Shaista Dorsey RN: PERFORM Event Display: Discharge/Transfer Note Hospital Authored Date: Nursing Discharge Note Entered On: 07/23/2024 14:56 EST Performed On: 07/23/2024 14:56 EST by Shaista Dorsey RN Nursing Discharge Note 2 Discharge Time : 07/23/2024 14:55 EST Discharge Level of Care at Discharge : Home/Fpc/Foster Care Patient Left Unit Via : Wheelchair Patient Accompanied Off Unit with : Responsible adult DC Instructions Provided & Signed by Pt : Yes Patient Understands D/C Instructions : Yes Verbalized Understanding of D/C Plan By : Family, Patient Patient Instructions Discharge Signed : Yes Did Pt have Specialty Bed or Wound Vac : No Shaista Dorsey RN - 07/23/2024 14:56 EST * Shaista Dorsey RN: PERFORM Event Display: Patient Education/Instruction Authored Date: Surgery Adult Discharge Instructions [place] [id number] Name: PARADISE GOTTLIEB : 1955?? Visit: 07/23/2024 10:27?? Current Date: 07/23/2024 14:13 ?? Account: [id number]?? Surgery Discharge Instructions We would like to thank you for allowing us to assist you with your healthcare needs. The following includes patient education materials and information regarding your injury/illness. Our entire staffstrives to provide an excellent experience for our patients and their families. PLEASE ENSURE YOU FOLLOW-UP PER THE INSTRUCTIONS BELOW! ?? YOUR OPINION IS IMPORTANT TO US! Please complete the survey you may receive by mail or email. Your feedback will be used to make improvements to the healthcare experiences of our patients and their families. Surveys are administered by [email or web address] ?? If further treatment with your primary care physician or another doctor is recommended, it is important for you to keep the appointment. Call your primary care physician or return to the Emergency Department immediately if your condition worsens, fails to improve, or new symptoms develop. If you need to find a doctor, you can call [facility] Link for a referral at [phone] or toll free at [phone] ([phone]) or log in to [email or web address].. ?? [facility], in keeping with [facility] guidance, no longer requires face masks for staff, patientsor visitors in most situations. Similiar to time spent indoors at other locations, there is the chance that you were exposed to repiratory viruses during your time with us (such as flu or COVID-19). If you develop symptoms concerning for a viral respiratory infection, please seek testing (and treatment if indicated) from your medical provider or home test kit. ?? You can view and manage your care through the patient portal or by using a health care daily of your choosing. [employer] is a website that allows you to securely view your medical information including your hospital discharge summary, office visit summaries, medications and follow-up visits. You can also request appointments, renew medications, and request access to your medical information using a health care daily of your choosing, or just ask a question. You are entitled to know the individuals who participated in your treatment. This information is available within your medical record and will be provided upon your request. You can enroll at [email or web address] or register d uring your next office visit. You have been discharged from [facility], Patient Care Unit: [facility]??. If you have any questions regarding these instructions after you leave, please call us and we will be happy to assist you. [facility] Your Care Team Attending Physician Wilbert MARIA MD (Surgeon)Ernestine?? Discharging Providers Veto Daniel MD Reason for Admission CHOLELITHIASIS LAP CHOLEOVN CS Primary Care Provider Dio Johns MD? Advance Directive Health Care Proxy on File No What to do next Instructions From Your Doctor ?? Orders?? Daystay Protocol, ??07/23/24 14:05:00 EST?? You Need to Schedule the Following Appointments Follow Up with??Wilbert MARIA MD (Surgeon), Ernestine Where: [address] [place] [address] [place] [address]- Discharge Medications PARADISE GOTTLIEB :1955 Visit Date:07/23/2024 Medications: Please continue your medications until treatment is completed or stopped by your provider. You may resume your daily prescription medications. Discuss any questions related to medications with your provider. What How Much When Instructions Next Dose New Acetaminophen (Tylenol 325 mg oral tablet) 2 tab(s) Oral Every 6 hours as needed for for pain Pickup at [facility] 3 New Oxycodone (oxyCODONE 5 mg oral tablet) 1 tab(s) Oral Every 6 hours as needed for as needed for pain Pickup at [facility] 3 Unchanged Albuterol (ProAir HFA) 2 puff(s) Inhalation 4 times a day Unchanged amiTRIPTYLINE (amitriptyline 25 mg oral tablet) 1 tab(s) Oral Daily at Bedtime Unchanged Aripiprazole (ARIPiprazole 2 mg oral tablet) 1 tab(s) Daily Unchanged BuPROpion (buPROPion 200 mg/ 12 hours (SR) oral tablet, extended release) 1 tab(s) Twice a day Unchanged Citalopram (citalopram 20 mg oral tablet) 1 tab(s) Oral Daily Unchanged Clonazepam Oral 3 times a day Unchanged Fluticasone-Salmeterol (Advair Diskus 100 mcg-50 mcg inhalation powder) 2 puff(s) Inhalation Twice a day Unchanged Gabapentin (gabapentin 400 mg oral capsule) 3 times a day Unchanged linaclotide (Linzess 145 mcg oral capsule) 1 capsule Oral Daily Duration: 30 Days Unchanged mirabegron (Myrbetriq 25 mg oral tablet, extended release) 1 tab(s) Daily Unchanged Mirtazapine (mirtazapine 30 mg oral tablet) 1 tab(s) Daily at Bedtime Unchanged Morphine (morphine 30 mg oral capsule) 1 capsule Oral Every 12 hours as needed for as needed for pain Unchanged Omeprazole (omeprazole 20 mg oral enteric coated capsule) 1 capsule Oral Twice a day Duration: 30 Days take 30-60 minutes before meals ?? Unchanged Trazodone (Trazodone Tablet) 150 Milligram Oral Daily at Bedtime Unchanged umeclidinium (Incruse Ellipta 62.5 mcg/ inh inhalation powder) 1 inhalation Daily at Bedtime Unchanged Verapamil (verapamil 40 mg oral tablet) 1 tab(s) Twice a day Pharmacy Information [facility]: [address], [place] [id number] [phone] Allergies (NKA means No Known Allergies) NKA Education Materials Below is the list of Educational Leaflet Providered with your Discharge Instructions. [employer] Ignite Patient Education - Discharge Instructions for Laparoscopic Gallbladder Removal Surgery (Cholecystectomy)?? [employer] Patient Education - ??NSAID Analgesic Schedule?? Valuables and Belongings I fully understand and agree that [facility] accepts no responsibility for all my personal property including clothing, toilet articles, radios, jewelry, dentures, hearing aids, rings, money, or any other property that is in my possession or is brought to me after admission. I understand certain valuables may be placed in a hospital safe for a short period of time. I understand that the hospital is not liable for loss or damage due to accident, fire, or other natural occurrence while said property is in the safe. I accept full responsibility for any personal property that I keep with me, and will not hold the hospital responsible in case of loss or disappearance. I acknowledge that i have been encouraged to send valuables and belongings home. ?? Review of Valuable and Belonging List: With patient Date for Pt to Sign Valuables/Belongings: 07/23/24 11:37:00 ?? Valuables & Belongings ?? Clothes Electronic devices Jewelry Monetary Items Personal devices Miscellaneous Medications (Valuables) Valuables at Bedside Jacket, Pants, Shirt, Shoes, Undergarments Cell phone Bracelet Purse ? Valuables Sent Home ? Valuables Sent to Security ? Valuables Sent to Locker ? Other Discharge Information ? Pulmonary Rehab Status?? Pulmonary Rehab Discharge Status?? Respiratory Rate: 21 br/min ? Common Emergency Awareness Tips IS IT A STROKE? Act FAST and Check for these signs: FACE Does the face look uneven? ARM Does one arm drift down? SPEECH Does their speech sound strange? TIME Call at any sign of stroke ?? Heart Attack Signs Chest discomfort: Most heart attacks involve discomfort in the center of the chest and lasts more than a few minutes, or goes away and comes back. It can feel like uncomfortable pressure, squeezing, fullness or pain. Discomfort in upper body: Symptoms can include pain or discomfort in one or both arms, back, neck, jaw or stomach. Shortness of breath: With or without discomfort. Other signs: Breaking out in a cold sweat, nausea, or lightheaded. Remember, MINUTES DO MATTER. If you experience any of these heart attack warning signs, call to get immediate medical attention! ?? Smoking can increase your chances of developing chronic health problems and can cause harmful effects to other family members in your house. If you smoke, you are strongly encouraged to quit. Please call [facility] Link at [phone] or [phone] ([phone]) or log in to [email or web address] for referrals to smoking cessation programs. ?? The National Suicide Prevention Hotline is available 11/03 if you or someone you know needs to find a reason to keep living. By calling 2-074-528-[employer] (4975) you'll be connected to a skilled, trained counselor at a crisis center in your area. SURGERY DISCHARGE INSTRUCTIONS SIGNATURE PARADISE JOHNSON Location:[facility] Registration Date and Time:07/23/2024 10:27 EST Primary Care Physician: Nat HERNANDEZ, Dio Arechiga, Attending Physician: Wilbert MARIA MD (Surgeon), Ernestine, PARADISE KLEIN, have received the above patient education materials/instructions and have verbalized understanding. If ambulance or transport services are being used I further acknowledge being given a choice of service. ?? If you need to contact me, please call me at this number: ____CIS . Patient/Agents' Records Clerk Name: Myrna Rodriguez Patient/Agents' Records Clerk Signature: Relationship to Patient: self Witness Name/Signature: Date: 07/23/24 * Shaista Dorsey RN: PERFORM Event Display: Patient Education Leaflets Authored Date: [id number] Discharge Instructions for Laparoscopic Gallbladder Removal Surgery (Cholecystectomy) ?? [address] Discharge Instructions for Laparoscopic Gallbladder Removal Surgery (Cholecystectomy) You had surgery to remove your gallbladder. This is called a cholecystectomy. You had the surgery done with laparoscopy. This means it was done with several small incisions. People who have the surgery done this way often recover more quickly. They may have less pain than with open gallbladder surgery.?? If your surgeon used a surgical robot to do the procedure, several small incisions were made to remove your gallbladder. The recovery for robotic surgery is generally the same as for a laparoscopy. You can live a full and healthy life without your gallbladder. This includes eating the foods and doing the things you enjoyed before. Below are guidelines for home care after surgery. Home care To care for yourself at home:? Get plenty of rest. Don???t worry if you feel tired for the first couple of weeks after your surgery. Fatigue is common. Nap when you feel tired.? Wash the skin around your cut (incision) daily with mild soap and water. It's??OK to shower the day after your surgery unless your healthcare provider says not to. ??? Eat your normal diet. But don't eat rich, greasy, or spicy food for a few days. Many surgeons advise a low-fat diet for the first month after surgery. Don???t eat fried food during this time. ??? You can walk around the house, do office work, climb stairs, or ride in a car if you feel able to do so. ??? Ask someone to drive you to your appointments for the next 3 days[address]???[address] until you have stopped taking pain medicine. Make sure you can step on the brake pedal with no delay. ??? Eat more fiber and use a stool softener if you are constipated. Pain medicine can cause constipation. Talk with your provider if you need more help. ??? Don???t sit in a bathtub, swimming pool, or hot tub until your healthcare provider says it???s safe. Wait until the incision is closed. Wait until any surgical tubes (drains) are removed. ?? Follow-up care Make a follow-up appointment with your surgeon as advised. Call your healthcare provider if these symptoms don???t go away within 1 week after your surgery: ??? Extreme tiredness (fatigue) ??? Pain around the incision ??? Diarrhea or constipation ??? Loss of appetite ?? When to call your healthcare provider Call your healthcare provider right away if you have any of these: ??? Yellowing of your eyes or skin (jaundice) ??? Chills ??? Fever of 100.4??F (38??C) or higher, or as directed by your provider? Redness or swelling of the incision ??? Fluid leaking or a bad smell from the incision ??? Incision pain that gets worse ??? Dark or rust-colored urine ??? Stool that is light in color instead of brown ??? Increasing belly pain ??? Rectal bleeding ??? Trouble breathing or shortness of breath ???Leg swelling ?? Last Reviewed Date: 2024 ?? [id number] The [employer]. All rights reserved. This information is not intended as a substitute for professional medical care. Always follow your healthcare professional's instructions. ?? * Shaista Dorsey RN: PERFORM Event Display: Patient Education Leaflets Authored Date: [id number] NSAID Analgesic Schedule ?? 604 NSAID???s Analgesic Schedule ?? Pain is the primary source of illness following your procedure and can include dehydration, difficulty and painful swallowing, and weight loss. These symptoms can lead to increased post-operative visits and hospital readmission. The best way to control pain is to take pain medications regularly. Your doctor has recommended both Ibuprofen and Acetaminophen (generic/store brands are okay, too). These can be picked up over the counter at your pharmacy of choice. Follow the instructions on the bottle to determine the proper dosage to give. The simplest way to take these medications it to rotate the two at 3-hour intervals. Here is a sample diagram. The time you take your medications may vary from this example. Do not give Ibuprofen more than every 6 hours or Acetaminophen every 4 hours. Do not give Acetaminophen if your doctor has given you a prescription that contains Acetaminophen. ? Patient Care team information Care Team Personnel Name: Nat HERNANDEZ, Dio Arechiga Position: [facility] Outreach Member Role: PCP Address: [address] [place] [address] Telecom: Name: Bushra Perry RN Position: [facility] [employer] Production Manager Member Role: Primary Care Nurse Name: Lizbeth Fitzpatrick RN Position: [facility] RN Member Role: Primary Care Nurse Name: Magui Suero RN Position: [facility] RN Member Role: Primary Care Nurse Name: Coty Chambers RN Position: [facility] [employer] Production Manager Member Role: Primary Care Nurse Care Team Related Persons Name: MYRNA WOODS Insurance Providers Guarantor name: PARADISE CHERY Health Plan Information #: 1 Payer: [facility] OPT Member Number: [id number] Policy Number: NA Group Number: NA Health Plan Information #: 2 Payer: [facility] OPT Member Number: [id number] Policy Number: NA Group Number: [id number]
== END 2024-07-28 14:19 | disposition home or self-care (01) ==
PROVIDERS: PCP Internal Medicine; Visit Provider Internal Medicine
DX: E66.9 Obesity, unspecified (principal); G47.33 Obstructive sleep apnea (adult) (pediatric); J44.9 Chronic obstructive pulmonary disease, unspecified; R05.9 Cough, unspecified
CPT/HCPCS: 99213

== ENCOUNTER → 2024-07-28 13:56 | Outpatient (BNVA) | payer OTHER, SELFPAY | PROVIDERS: PCP Internal Medicine; Visit Provider Internal Medicine | DX: J44.9 Chronic obstructive pulmonary disease, unspecified (principal); G47.33 Obstructive sleep apnea (adult) (pediatric); E66.9 Obesity, unspecified; R05.9 Cough, unspecified | CPT/HCPCS: 99212 ==

== ENCOUNTER 2024-11-23 14:04 | Outpatient (REF) | payer OTHER, SELFPAY ==
--- OUTSIDE RECORDS SUMMARY | 2024-11-23 17:48 | XMS_ITS | Encounter Summary ---
Author Organization [employer] Address [address] [place] [address] Care Team Providers Care Cone Chocolate Dipper Name Role Phone Dio Anderson MD Primary Care Provide r Dario Cantu PharmD Unavailable [phone] Reason for Visit * Reason Onset Date Comments Appointment Request 03/03/2024 Encounter Details Date Type Department Care Team ([facility] st Contact Info) Description 03/03/2024 Telephone [facility] MEDICINE [address] [place] [address] Dio Anderson MD [address] [place] [address] Appointment Request Social History Tobacco Use Types [...] from pt requesting to r/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 documented in this encounter Plan of Treatment Upcoming Encounters Date Type Department Care Team (Late st Contact Info) Description 12/01/2024 1:15 PM EDT Office Visit [facility] MEDICINE [address] [place] [address] Dio Anderson MD [address] [place] [address] 12/24/2024 2:30 PM EDT Clinical Support [facility]EDS [address] [place] [address] Mone Shelton, NIXON [address] [place] [address] documented as of this encounter Goals Goal [...] documented as of this encounter Care Teams Cone Chocolate Dipper Relationship Specialty Start Date End Date Dio Anderson MD 230 [place] [address] PCP - General Internal Medicine 05/31/14 Dario Cantu PharmD [address] [place] [address] Pharmacist Internal Medicine 10/31/23 documented as of this encounter
--- OUTSIDE RECORDS SUMMARY | 2024-11-23 17:48 | XMS_ITS | Encounter Summary ---
Author Organization [employer] Address [address] 7[address] [place] [address] Care Team Providers Care Oil Bay Technician Name Role Phone Dio Anderson MD Primary Care Provide r Dario Cantu PharmD Unavailable [phone] Reason for Visit * Reason Onset Date Comments Med Refill 04/09/2024 Encounter Details Date Type Department Care Team ([facility] st Contact Info) Description 04/09/2024 Telephone [facility]ICINE [address] [place] [address] Dio Anderson MD [address] [place] [address] Med Refill Social History Tobacco Use Types [...] 12 hr table To be sent to: [facility] documented in this encounter Plan of Treatment Upcoming Encounters Date Type Department Care Team (Late st Contact Info) Description 12/01/2024 1:15 PM EDT Office Visit [facility] [address] [place] [address] Dio Anderson MD [address] [place] [address] 12/24/2024 2:30 PM EDT Clinical Support [facility] 505 [place] [address] Mone Shelton, NIXON 505 [place] [address] documented as of this encounter Goals Goal [...] documented as of this encounter Care Teams Oil Bay Technician Relationship Specialty Start Date End Date Dio Anderson MD [address] [place] [address] PCP - General Internal Medicine 05/31/14 Dario Cantu PharmD [address] [place] [address] Pharmacist Internal Medicine 10/31/23 documented as of this encounter
--- OUTSIDE RECORDS SUMMARY | 2024-11-23 17:48 | XMS_ITS | Clinical Summary ---
Author Organization [employer] Address [address] [facility] 7t [place] [address] Care Team Providers Care Semiconductor Development Technician Name Role Phone Dio Anderson MD Primary Care Provide r Dario Cantu PharmD Unavailable [phone] Allergies No known active allergies Medications naloxone [...] hyperplastic polyps. she was last seen at [facility] on 10/28/2012 and their impression was [...] years in past having started going to jainism. Stopped going due to transportation issues and [...] EVEN BEFORE PUTTING ON THE CPAP AND ME AN DURING THE NIGHT. Chronic low back [...] injections (April 2006). she was seen at [facility] and subsequently at the [facility] pain clinic. At some point she was [...] injections (April 2006). she was seen at [facility] and subsequently at the [facility] pain clinic. At some point she was [...] injections (April 2006). she was seen at [facility] and subsequently at the [facility] pain clinic. At some point she was [...] Type Department Care Team Description 11/11/2024 Telephone [facility] MEDICINE [address] [place] [address] Dio Anderson MD Chart Prep 11/09/2024 Refill [facility] [address] [facility] [address] Dio Anderson MD Chronic right-sided low back pain without sciatica 10/07/2024 Refill [facility] 230 [facility] [place] [address] Dio Anderson MD Chronic right-sided low back pain without sciatica 09/23/2024 3:15 PM EST Clinical Support [facility] MED & PEDS 505 [facility] [place] [address] Mone Shelton RN Chronic right-sided low back pain without sciatica 09/23/2024 Travel 09/21/2024 Telephone [facility] MED & PEDS [address] [facility] [place] [address] Mone Shelton, NIXON 09/12/2024 Refill [facility] MED[facility]INE 230 [facility] [place] [address] Dio Anderson MD Primary hypertension 09/04/2024 Refill [facility] 230 [facility] [place] [address] Dio Anderson MD Pain 09/03/2024 Refill [facility]INE [address] [place] [address] Dio Anderson MD Chronic right-sided low back pain without sciatica 08/25/2024 3:00 PM EST Office Visit [facility] MEDICINE 230 [place] [address] Dio Anderson MD Obstructive sleep apnea syndrome [...] Description 12/01/2024 1:15 PM EDT Office Visit [facility] MEDICINE [address] [place], [place] [phone] Dio Anderson MD [address] [place] [address] 12/24/2024 2:30 PM EDT Clinical Support [facility]EDS [address] [place] [address] Moen Shelton, NIXON 505 [facility] [place] [address] Health Maintenance Due Date Last Done Comments [...] RN - 09/23/2024 3:38 PM EST Lot# [id number] Exp: 07-25-25 Dio Ortega MD POINT OF CARE TEST EN TER/EDIT ORDERABLES Final Result * (ABNORMAL) Lipid Panel with Reflex to Direct LDL (05/07/2023 10:30 AM EDT) Triglycerides 121 <150 mg/dL [facility] Comment:Desirable Triglyceri de: less than 150 mg/dLBorderline High Triglyceride 150-199 mg/dLHigh Triglyceride: 200-499 mg/dLVery High Triglyceride: greater than or equal to 5OO mg/dL Cholesterol 231(H) <200 mg/dL [facility] Comment:Desirable Cholestero l: less than 200 mg/dLBorderline High Cholesterol: 200-239 mg/dLHigh Cholesterol: greater than 239 mg/dL LDL Cholesterol Calculated 146(H) <100 mg/dL [facility] Comment:Desirable LDL: less than 100 mg/dLNear Optimal/Above Optimal LDL: 110- 129 mg/dLBorderline High LDL: 130-159 mg/dLHigh LDL: 160-189 mg/dLVery High LDL: greater than or equal to 190 mg/dL HDL Cholesterol 61 >40 mg/dL [facility] Comment:Desirable HDL: great er than 40 mg/dL Note: This HDL assay may give artificially low results in patients with liver disease. Blood 05/07/2023 10:3 0 AM EDT 05/07/2023 11:34 AM EDT Dio Ortega MD LAB BLOOD ORDERABLES Final Result [facility] [address] [place] [phone] * Mammography Report 1 (12/28/2021 2:40 [...] Most Recently Relevant to Health Maintenance Insurance [facility] DUAL COMPLETE Care Teams Semiconductor Development Technician Relationship Specialty Start Date End Date Dio Anderson MD [address] [place] [address] PCP - General Internal Medicine 05/31/14 Dario Cantu, KennyD [address] [place] [address] Pharmacist Internal Medicine 10/31/23
--- OUTSIDE RECORDS SUMMARY | 2024-11-23 17:48 | XMS_ITS | Encounter Summary ---
Author Organization [employer] Address [address] [facility] 7t [place] [address] Care Team Providers Care Evidence Specialist Name Role Phone Dio Anderson MD Primary Care Provide r Dario Cantu PharmD Unavailable [phone] Reason for Visit * Reason Onset Date Comments Med Refill 04/25/2023 Encounter Details Date Type Department Care Team (Late st Contact Info) Description 04/25/2023 Telephone [facility] MEDICINE [address] [place] [address] Dio Anderson MD [address] [place] [address] Med Refill Social History Tobacco Use Types [...] Description 12/01/2024 1:15 PM EDT Office Visit [facility] MEDICINE [address] [place] [address] Dio Anderson MD [address] [place] [address] 12/24/2024 2:30 PM EDT Clinical Support [facility] MED & PEDS [address] [place], [place] [phone] Mone Shelton, RN 505 [place], [place] [phone] documented as of this encounter Visit Diagnoses Not on filedocumented in this encounter Additional Health Concerns Assessment Noted Time PHQ-9 Depression Total Score: 0 10/24/19 23 11:37 AM EST documented as of this encounter Care Teams Evidence Specialist Relationship Specialty Start Date End Date Dio Anderson MD [address] [place] [address] PCP - General Internal Medicine 05/31/14 Dario Cantu, PharmD [address] [place] [address] Pharmacist Internal Medicine 10/31/23 documented as of this encounter
== END 2024-11-23 14:05 | disposition home or self-care (01) ==
LOC: HO.LAB 14:04
PROVIDERS: PCP Internal Medicine; Visit Provider Nurse Practitioner Family
DX: R35.0 Frequency of micturition (principal); N39.0 Urinary tract infection, site not specified; N39.41 Urge incontinence
CPT/HCPCS: 51798; 81003; 87086; 99212

== ENCOUNTER 2024-11-23 14:04 | Outpatient (AMB) | payer OTHER, SELFPAY ==
--- NOTE | 2024-11-23 14:14 | MHC.OFFVIS ---
Intake Visit Reasons: 3m followup Intake Note: Patient is present today for 3 month visit follow up Urology Medications: Estrace Cream and Myrbetriq Blood Thinner: none PVR:27ml Patient Case Manager Required: No Accompanied by: Self / Same As Patient Allergies No Known Allergies Allergy (Mild, Verified 11/23/24 20:23) UNKNOWN Medication List - Last Reconciled 11/23/24 by LUCERO Dubois albuterol sulfate 90 mcg/actuation 2 puffs PO Q4H PRN 30 days albuterol sulfate 90 mcg/actuation 2 puffs inhalation Q4-6H PRN 30 days amitriptyline 25 mg PO BEDTIME aripiprazole mg PO aripiprazole 2 mg PO DAILY bupropion HCl SR 200 mg PO BID citalopram (Celexa) 20 mg PO DAILY citalopram 40 mg PO QAM estradiol 0.01%(0.1mg/gram) vaginally 3 times a week; pea sized amount to urethra 3 times a week 30 days gabapentin 400 mg PO TID Incruse Ellipta 62.5 mcg/actuation (umeclidinium) 1 inh PO DAILY NS mirabegron ER (Myrbetriq) 50 mg (2 x 25 mg) PO DAILY 90 days mirtazapine 15 mg PO BEDTIME morphine ER 30 mg PO DAILY naloxone 4 mg/actuation 0 sprays intranasal verapamil 40 mg PO BID HPI Comments Details: Karina is a pleasant 68-year-old female patient of Dr. Rajan. She has a past medical history of overactive bladder, urinary incontinence, COPD, and obstructive sleep apnea. She presents to the office today for follow-up of her lower urinary tract symptoms. In discussion with the patient today she discusses her ongoing issues with her chronic back pain. She reports compliance with Myrbetriq as prescribed in discusses how helpful this has been in treatment of her overactive bladder. She does report noting increased episodes of urinary frequency over the last 1-2 weeks. In office urinalysis results reviewed with the patient today 3+ leukocytes negative nitrates. PVR 27 mL. Previous workup has included a retroperitoneal ultrasound 01/08 noting no renal mass or calculus seen bilaterally. The bladder is well distended and normal. Bilateral ureteral jets are demonstrated. When asked patient reporting dysuria, nocturia, and urinary frequency she reports compliance with Estrace cream as prescribed. She otherwise denies incontinence, hematuria, dysuria, foul smelling urine, changes to urinary stream, flank pain, fever, and or chills. She otherwise offers no other issues or concerns at this time. Plan For urinary frequency, a urine culture is planned to exclude an infection without apparent symptoms, though the current medication has reportedly reduced lower urinary tract symptoms she had been experiencing effectively. Further decisions will depend on test results, with a reassessment planned in three months to monitor and adjust treatment as necessary. Patient was informed and verbally consented to the use of an ambient scribe for clinic note documentation during this visit. Discussion Notes Concerning her urinary symptoms of increased frequency, we agreed to conduct a urine culture to ensure no infection is overlooked, even without typical infection indicators. Follow-up arrangements were made for three months to reassess her back pain and the outcome of the urine culture, with an understanding that urgent concerns should prompt earlier contact. All proposed interventions and follow-ups were communicated clearly, and the patient was receptive to the planned diagnostic measures and ongoing management strategy. [facility] Medical History Costochondral chest pain OAB (overactive bladder) Nocturnal hypoxemia Maternal UTI (urinary tract infection), recurrent Urgency incontinence Urge incontinence Cough COPD (chronic obstructive pulmonary disease) Obesity JOSE RAMON (obstructive sleep apnea) Social History Alcohol intake: never Patient Tobacco Use Status: Current someday Tobacco user Cigarette Packs Per Day: 0.5 Cigarettes Per Day: 10.0 Current occupational status: disabled Current occupation: Right Handed Review of Systems Const Reports as per HPI Eyes Reports no additional complaints ENT Reports as per HPI Card Reports no additional complaints Resp Reports as per HPI GI Reports no additional complaints Reports as per HPI Neuro Reports no additional complaints Psych Reports no additional complaints Endo Reports no additional complaints Physical Exam Const General: cooperative, healthy appearing, comfortable, no acute distress, well developed, alert and awake Orientation/consciousness: patient oriented x3 Limitations: no limitations HEENT Head: Yes normal to inspection, Yes normocephalic and Yes atraumatic Ears: hearing grossly normal bilaterally Eyes General: appearance normal, both eyes and all related structures Neck Neck: Yes normal visual inspection and Yes trachea midline Chest Chest palpation & inspection: normal inspection of the chest Resp Effort & Inspection: normal respiratory effort and able to speak in complete sentences Cardio Rate: regular rate GI Inspection: Yes normal to inspection General: Yes CVA tenderness (bilaterally) Back/Spine/Pelvis Back: CVA tenderness (bilaterally) Neuro General: patient oriented x3 Extrem General: Yes normal to inspection Psych Appearance: grossly normal and well kempt Mental Status: mental status grossly normal Speech and movement: Clear speech present Affect: normal affect Attitude: cooperative Thought process: Normal thought process present Thought content: Normal thought content present Insight: Fair insight present (Psych) Judgement: Fair judgement present (Psych) Office Procedures Post Void Residual Post Residual Void Post Void Residual (PVR): 27 73750-[id number] Void Residual by ultrasound Results AMB Urinalysis, Automated UA Leukoctes 500 Brandon/uL Last Edit by Sarah Givens CMA on 11/23/24 14:26 UA Nitrite Negative Last Edit by Sarah Givens CMA on 11/23/24 14:26 UA Urobilinogen 0.2 mg/dL Last Edit by Sarah Givens CMA on 11/23/24 14:26 UA Protein 15 mg/dL Last Edit by Sarah Givens CMA on 11/23/24 14:26 UA pH 7.5 Last Edit by Sarah Givens CMA on 11/23/24 14:26 UA Blood 10 Geo/uL Last Edit by Sarah Givens CMA on 11/23/24 14:26 UA Specific [place] 1.010 Last Edit by Sarah Givens CMA on 11/23/24 14:26 UA Ketone Negative Last Edit by Sarah Givens CMA on 11/23/24 14:26 UA Bilirubin 0 mg/dL Last Edit by Sarah Givens CMA on 11/23/24 14:26 UA Glucose 0 mg/dL Last Edit by Sarah Givens CMA on 11/23/24 14:26 Results Reviewed Results Reviewed: Laboratory Last Values Urine pH (Auto) 7.5 11/23/24 14:20 Specific [place] (Auto) 1.010 11/23/24 14:20 Urine Protein (Auto) 15 mg/dL 11/23/24 14:20 Glucose (UA)(Auto) 0 mg/dL 11/23/24 14:20 Urine Ketones (Auto) Negative 11/23/24 14:20 Urine Blood (Auto) 10 Geo/uL 11/23/24 14:20 Urine Nitrite (Auto) Negative 11/23/24 14:20 Urine Bilirubin (Auto) 0 mg/dL 11/23/24 14:20 Urine Urobilinogen (Auto) 0.2 mg/dL 11/23/24 14:20 Leukocyte Esterase (Auto) 500 Brandon/uL 11/23/24 14:20 Assessment & Plan Assessment & Plan (1) Urinary tract infection: Code(s): N39.0 - Urinary tract infection, site not specified Category: Medical (2) Urinary frequency: Code(s): R35.0 - Frequency of micturition Category: Medical (3) Urgency incontinence: Code(s): N39.41 - Urge incontinence Category: Medical (4) Urge incontinence: Code(s): N39.41 - Urge incontinence Category: Medical Plan In office urinalysis results reviewed with the patient today; as noted above; will send for urine culture; will await results for potential treatment PVR 27 mL. Continue Myrbetriq as discussed and prescribed. Continue Estrace cream as discussed and prescribed. We discussed importance of adequate hydration relation to lower urinary tract symptoms as well as overall health and well-being. Discussed UTI prevention with D mannose supplement, vitamin-C, increasing fluid intake, behavioral therapy with timed voiding, perineal hygiene and postcoital voiding, and management of constipation with stool softeners and increased fiber intake. Follow-up in 3 months with PVR; or sooner with any issues, concerns, and or questions. Orders: Orders AMB Urinalysis Automated Today R35.0 - Frequency of micturition AMB Post Void Residual by ultrasound Today N39.41 - Urge incontinence Urine Culture Today N39.0 - Urinary tract infection, site not specified Medications: Refilled mirabegron ER (Myrbetriq) 50 mg (2 x 25 mg) PO DAILY 90 days 180 tabs 0RF N30.10 - Interstitial cystitis (chronic) without hematuria, N32.81 - Overactive bladder, R35.1 - Nocturia, R39.15 - Urgency of urination Patient Instructions: The patient had an opportunity to ask questions regarding the treatment plan. All questions were answered. Physical exam, labs, and imaging were discussed and reviewed in detail. As well as risks, benefits, and discussion of treatment choices. No major barriers to understanding were identified. The patient expressed understanding and agreement with the above treatment plan. The patient was made aware they should contact our office by phone for worsening of their current condition, the appearance of new symptoms, or with any questions or concerns. Compliance is encouraged with any medications and follow up testing that is ordered. It is a privilege to be allowed the opportunity to participate in? your urological care.? Again, if you have any questions or concerns If you have any questions or concerns please do not hesitate to contact me. The office is [phone]. This note is constructed using voice recognition software. While every effort has been made to ensure accuracy radio disc jockey errors may have been included. Yours sincerely, LUCERO Dubois Coding Level of Care Code Est Pt Level 3 (46562) Complex EM visit Add On G2211 Diagnoses Urinary tract infection N39.0 Urinary frequency R35.0 Urgency incontinence N39.41 CPT Codes Post Residual Void - PVR CPT Code: 01937-Bwob Void Residual by ultrasound ([id number])
--- OUTSIDE RECORDS SUMMARY | 2024-11-23 16:50 | XMS_ITS | Encounter Summary ---
Author Organization [employer] Address [address] [place] [address] Care Team Providers Care Airport Clerk Name Role Phone Dio Anderson MD Primary Care Provide r Dario Cantu PharmD Unavailable [phone] Reason for Visit * Reason Onset Date Comments Med Refill 04/09/2024 Encounter Details Date Type Department Care Team ([facility] st Contact Info) Description 04/09/2024 Telephone [facility] [address] [place] [address] Dio Anderson MD [address] [place] [address] Med Refill Social History Tobacco Use Types Packs/Day Years Used Date Smoking Tobacco: Every Day Cigarettes 0.5 59.3 Started: 1965 Passive Smoke Exposure: Current Smokeless Tobacco: Current Alcohol Use Standard Drinks/Week Comments Never 0 (1 standard drink = 0.6 oz pur e alcohol) Depression Answer Date Recorded Patient Health Questionnaire-9 Score 0 10/23/2022 Housing Stability Answer Date Recorded What is your housing situation today? I have cristobalmac pantoja 06/03/[address] you li ve. Do you have problems with any of the following? None of the above 06/03/2023 Food Insecurity Answer Date Recorded Within the past 12 months, y ou worried that your food would run out before you got money to buy more: Never True 06/03/2023 Within the past 12 months,th e food you bought just didn't last and you didn't have enough money to get more: Never True 10/ Transportation Answer Date Recorded In the past 12 months, has l ack of transportation kept you from medical appts, meetings, work or from getting things needed for daily living? No 06/03/2023 Utilities Answer Date Recorded In the past 12 months, has t he electric, gas, oil or water company threatened to shut off services in your home? No 06/03/2023 Depression Answer Date Recorded Patient Health Questionnaire-2 Score 0 10/23/2022 Comments Unknown Sex and Gender Information Value Date Recorded Sex Assigned at Female 06/18/2022 10:14 AM EDT Legal Sex Female 10:14 AM EDT Gender Identity Female 06/18/2022 10:14 AM EDT Sexual Orientation Choose not to disclose 2021 10:14 AM EDT documented as of this encounter Miscellaneous Notes * Telephone Encounter - Lobo Hdez - 04/09/2024 3:25 PM EDT TC from pt requesting medication refill. Medications needing refill : morphine CR (MS Contin) 30 MG 12 hr table To be sent to: [facility] documented in this encounter Plan of Treatment Upcoming Encounters Date Type Department Care Team (Late st Contact Info) Description 12/01/2024 1:15 PM EDT Office Visit [facility] [address] [place] [address] Dio Anderson MD [address] [place] [address] 12/24/2024 2:30 PM EDT Clinical Support [facility] [address] [place] [address] Mone Shelton, [place] [address] [place] [address] documented as of this encounter Goals Goal Patient Goal Type Associated Problems Recent Progress Patient-Stated? Author Quit using tobacco (cigarettes, smokeless, etc) Tobacco Use Tobacco dependence syndrome No Dario Cantu, PharmD documented as of this encounter Visit Diagnoses Not on filedocumented in this encounter Additional Health Concerns Assessment Noted Time PHQ-9 Depression Total Score: 0 10/24/19 23 11:37 AM EST documented as of this encounter Care Teams Airport Clerk Relationship Specialty Start Date End Date Dio Anderson MD [address] [place] [id number] PCP - General Internal Medicine 05/31/14 Dario Cantu PharmD [address] [place] [address] Pharmacist Internal Medicine 10/31/23 documented as of this encounter
--- OUTSIDE RECORDS SUMMARY | 2024-11-23 16:50 | XMS_ITS | Clinical Summary ---
Author Organization [employer] Address [address] [place] [address] Care Team Providers Care Conduit Installer Name Role Phone Dio Anderson MD Primary Care Provide r Dario Cantu PharmD Unavailable [phone] Allergies No known active allergies Medications naloxone (Narcan) 4 mg/0.1 mL nasal spray Administer 0.1 mL into affected nostril(s). 11/03/19 22 Active albuterol (2.5 MG/3ML) 0.083% nebulizer solution Inhale 3 mL in the morning and 3 mL at noon and 3 mL in the evening. 07/24/20 18 Active albuterol (ProAir HFA) 108 (90 Base) MCG/ACT inhaler Inhale 2 puffs every 4 (four) hours if needed. 09/06/19 22 Active pneumococcal conjugate (Prevnar 13) vaccine Inject 0.5 mL into the shoulder, thigh, or buttocks. 06/19/20 22 Active ceramides (CeraVe) moisturizing creamIndication s:Dyshidrotic eczema Apply 1 Application. topically if needed for dry skin. 453 g 09/16/19 24 Active betamethasone valerate (Valisone) 0.1 % ointmentIndicat ions:Dyshidroti c eczema Apply topically if needed in the morning and at bedtime for rash. For 14 days at a time 45 g 1 09/16/19 24 Active morphine CR (MS Contin) 30 MG 12 hr tabletIndicatio ns:Chronic right-sided low back pain without sciatica Take 1 tablet (30 mg) by mouth Once daily. Do not crush, chew, or split. 28 tablet 01/09/20 24 Active mirtazapine (Remeron) 30 MG tablet Take 30 mg by mouth at bedtime. 07/21/20 24 Active citalopram (CeleXA) 20 MG tablet Take 20 mg by mouth in the morning. 08/13/20 24 Active buPROPion SR (Wellbutrin SR) 200 MG 12 hr tablet Take 200 mg by mouth 2 times daily. 08/11/20 24 Active ARIPiprazole (Abilify) 20 MG tablet Take 10 mg by mouth Once per day. 08/18/20 24 Active ARIPiprazole (Abilify) 2 MG tablet Take 2 mg by mouth Once per day. 08/11/20 24 Active losartan (Cozaar) 25 MG tabletIndicatio ns:Primary hypertension Take 1 tablet (25 mg) by mouth Once per day. 30 tablet 3 08/25/19 25 026 Active amitriptyline (Elavil) 25 MG tabletIndicatio ns:Pain TAKE 1 TABLET BY MOUTH EVERY DAY AT BEDTIME 90 tablet 1 09/08/19 25 Active verapamil (Calan) 40 MG tabletIndicatio ns:Primary hypertension TAKE 1 TABLET(40 MG) BY MOUTH TWICE DAILY 180 tablet 1 09/15/19 25 Active morphine CR (MS Contin) 30 MG 12 hr tabletIndicatio ns:Chronic right-sided low back pain without sciatica Take 1 tablet (30 mg) by mouth Once daily for 28 days. Do not crush, chew, or split. 28 tablet 11/11/19 25 025 Active morphine CR (MS Contin) 30 MG 12 hr tabletIndicatio ns:Chronic right-sided low back pain without sciatica Take 1 tablet (30 mg) by mouth Once daily for 28 days. Do not crush, chew, or split. 28 tablet 10/08/19 25 025 Discontinued(R eorder (will not trigger notification to Pharmacy)) Active Problems Problem Noted Date Diagnosed Date Overactive bladder 08/25/2024 Assessment & Plan (08/25/2024 3:21 PM EST): Under the care of Urology, last note 03/2024 Irritable bowel syndrome 04/25/2023 Assessment & Plan (04/25/2023 1:03 PM EDT): Pt had an EGD in 07/28/2012 that showed erosive gastritis, and a colonoscopy on 07/28/2012 that showed 2 polyps hyperplastic polyps. she was last seen at [facility] on 10/28/2012 and their impression was that her symptoms of constipation and bloating were likely due to IBS. Preventative health care 04/25/2023 Assessment & Plan (08/25/2024 3:13 PM EST): Mammogram 12/28/2021 Normal. Repeat ordered, did not have it, reordered again Pap 10/12/10 normal, s/p hysterectomy so can stop paps. Colonoscopy 07/28/2012 with hyperplastic polyps, repeat in 10 years. Pt was referred but did not go, referred again Vaccines: Tdap: 02/22/2015 Assessment & Plan (04/25/2023 1:06 PM EDT): Mammogram 12/28/2021 Normal. Repeat ordered Pap 10/12/10 normal, s/p hysterectomy so can stop paps. Colonoscopy 07/28/2012 with hyperplastic polyps, repeat in 10 years. Will refer back Vaccines: Tdap: 02/22/2015 Foot callus 10/23/2022 Assessment & Plan (10/23/2022 11:48 AM EST): Pt with a large painful callus in between her right great toe and middle toe Plan: Podiatry evaluation Tobacco dependence syndrome 10/22/2022 Overview (11/04/2023): Pharmacotherapy: Updated 11/04/23 - START Nicotine patches 21mg/day - Apply 1 patch daily - START Nicotine Lozenge 4mg - Dissolve 1 lozenge every 2 hours as needed for cravings History: updated 11/04/23 Smoking since age 11. Had quit for 6 years in past having started going to [employer]. Stopped going due to transportation issues and is now back to smoking. Smokes about 1/2 PPD. Motivated to quit smoking due to effects on lungs/ COPD and chronic cough. Exposed to passive smoke by son and daughter who both smoke but do not live with patient. Tried 14mg patch in past but reports that it did not help. Assessment & Plan (11/04/2023 1:58 PM EDT): Assessment: -Not at goal of tobacco free lifestyle Plan: - START 21mg patch to see if this helps with cravings; option to go lower to 14mg if experiencing side effects - Use nicotine lozenge if patches are not controlling cravings on it's own. - F/U in 4 weeks to track progress and make adjustments to pharmacotherapy as needed. Obstructive sleep apnea syndrome 10/31/2012 Assessment & Plan (08/25/2024 3:06 PM EST): Under the care of Dr. Elmore Pulmonology. She reports using her Cpap machine regularly. Assessment & Plan (04/25/2023 12:51 PM EDT): Evaluated recently by Dr. Elmore 04/23/2023 Pulmonology. She reports using her Cpap machine regularly Obesity 10/31/2012 Assessment & Plan (08/25/2024 3:09 PM EST): Dietary Recommendations: Fruits, vegetables, whole grains, protein foods, and fat-free or low-fat dairy products are healthy choices. Eat different types of protein foods in your diet. This can include seafood, lean meats, poultry, beans, peas, lentils, nuts, seeds, soy products, and eggs. Limit foods and beverages higher in added sugars, saturated fat, and sodium. Exercise Recommendations: At least 150 minutes of moderate-intensity physical activity per week, or an equivalent combination of moderate- and vigorous-intensity activity Mantoux: positive 10/31/2012 Kidney stone 10/31/2012 Hypertension 10/31/2012 Assessment & Plan (08/25/2024 3:33 PM EST): Pt here for a f/u Has BP monitor at home BP currently uncontrolled She is on a regimen of: Verelan 40 mg po BID Most recent electrolytes, Bun and Creatinine done on: Lab Results Component Value Date NA 140 05/07/2023 NA 142 09/07/2021 K 4.5 05/07/2023 K 4.3 09/07/2021 CL 106 05/07/2023 CL 107 09/07/2021 BUN 8 (L) 05/07/2023 BUN 11 09/07/2021 CREATININE 1.11 05/07/2023 CREATININE 0.79 09/07/2021 Will repeat. CTA of Chest done on: 10/10/2016 showed: paraseptal and centrilobular emphysema patient advised to adhere to a low sodium diet, encouraged about medication compliance. Plan: Start Losartan 25 mg po daily f/u 3 months Assessment & Plan (04/25/2023 1:06 PM EDT): Televisit Has BP monitor at home BP currently controlled on a regimen of: Verelan 40 mg po BID per her report Given adequate blood pressure control will continue with current medical regimen. Most recent electrolytes, Bun and Creatinine done on: 09/07/2021 were wnl. Will repeat. CTA of Chest done on: 10/10/2016 showed: paraseptal and centrilobular emphysema patient advised to adhere to a low sodium diet, encouraged about medication compliance. f/u 4 months Assessment & Plan (10/22/2022 1:52 PM EST): Pt here for a follow up BP currently controlled on a regimen of: Verelan 40 mg po BID Given adequate blood pressure control will continue with current medical regimen. Most recent electrolytes, Bun and Creatinine done on: 09/07/2021 were wnl. Will repeat. CTA of Chest done on: 10/10/2016 showed: paraseptal and centrilobular emphysema patient advised to adhere to a low sodium diet, encouraged about medication compliance. f/u 4 months Depressive disorder 10/31/2012 Assessment & Plan (08/25/2024 3:26 PM EST): Pt here for a follow up She has Depression. Pt follows with Yasmine (Aurelio Dorman). Patient denies any suicidal ideation or thoughts, Patient has crisis numbers and knows to use them if needed Assessment & Plan (04/25/2023 12:58 PM EDT): Televisit She has Depression. Pt follows with a psychiatrist Melo (Aurelio Dorman). Currently on a regimen of Citalopram 40 mg po daily, Patient denies any suicidal ideation or thoughts, Patient has crisis numbers and knows to use them if needed Chronic obstructive lung disease 10/31/2012 Assessment & Plan (08/25/2024 3:07 PM EST): Under the care of Dr. Elmore, last seen 07/28/2024. He thinks she has Asthma recommended to continue Incruse Elipta Assessment & Plan (04/25/2023 12:54 PM EDT): SHE HAS PAST DIAGNOSIS OF COPD. BUT HER SPIROMETRY IS ESSENTIALLY NORMAL PER DR ELMORE ON 04/2023 HE THINKS SHE HAS REACTIVE AIRWAYS/BRONCHIAL ASTHMA GIVEN HER COMPLAINTS OF COUGH AND SOME WHEEZING ESPECIALLY AT NIGHT, HE RECOMMENDED TO CONTINUE TO USE INCRUSE ELLIPTA 1 INHALATION DAILY. AND ALBUTEROL HFA 1 OR 2 PUFFS EVEN BEFORE PUTTING ON THE CPAP AND IL AN DURING THE NIGHT. Chronic low back pain 10/31/2012 Assessment & Plan (08/25/2024 3:10 PM EST): Here for a f/u She has chronic low back pain due to a right paracentral disc herniation at L3- L4, with moderate mass effect in the right ventral sac. In the past she was evaluated by a neurosurgeon who recommended a trial of conservative measures and epidural injections (April 2006). she was seen at [facility] and subsequently at the [facility] pain clinic. At some point she was referred by the pain clinic to a neurosurgeon but back then pt stated she was not interested in undergoing any type of surgical intervention. Last visit she told me she was tired of it and would be amenable to a surgical procedure . I have been prescribing MS contin 30 mg po q 12 hrs and she has been receiving Gabapentin from her Neurologist. On a previous visit she was scheduled for a f/u with the pain clinic. Last note I have from them dates from 03/01/2009.Repeat MRI of her LS spine done on 06/04/2012 showed mild spondylosis at L4-L5 and l5-S1.Findings were similar since prior study. Repeat MRI to r/o worsening disc herniation done 10/26/2016 showed mild lumbar spondylosis with a posterior disc bulge Pt went to the pain clinic for a while but then stopped. Plan: Continue Contin, has a COT contract Assessment & Plan (04/25/2023 12:54 PM EDT): Here for a f/u She has chronic low back pain due to a right paracentral disc herniation at L3- L4, with moderate mass effect in the right ventral sac. In the past she was evaluated by a neurosurgeon who recommended a trial of conservative measures and epidural injections (April 2006). she was seen at [facility] and subsequently at the [facility] pain clinic. At some point she was referred by the pain clinic to a neurosurgeon but back then pt stated she was not interested in undergoing any type of surgical intervention. Last visit she told me she was tired of it and would be amenable to a surgical procedure . I have been prescribing MS contin 30 mg po q 12 hrs and she has been receiving Gabapentin from her Neurologist. On a previous visit she was scheduled for a f/u with the pain clinic. Last note I have from them dates from 03/01/2009.Repeat MRI of her LS spine done on 06/04/2012 showed mild spondylosis at L4-L5 and l5-S1.Findings were similar since prior study. Repeat her MRI to r/o worsening disc herniation done 10/26/2016 showed mild lumbar spondylosis with a posterior disc bulge Pt went to the pain clinic for a while but then stopped. Plan: Continue Contin, has a COT contract Assessment & Plan (10/23/2022 11:45 AM EST): Here for a f/u She has chronic low back pain due to a right paracentral disc herniation at L3- L4, with moderate mass effect in the right ventral sac. In the past she was evaluated by a neurosurgeon who recommended a trial of conservative measures and epidural injections (April 2006). she was seen at [facility] and subsequently at the [facility] pain clinic. At some point she was referred by the pain clinic to a neurosurgeon but back then pt stated she was not interested in undergoing any type of surgical intervention. Last visit she told me she was tired of it and would be amenable to a surgical procedure . I have been prescribing MS contin 30 mg po q 12 hrs and she has been receiving Gabapentin from her Neurologist. On a previous visit she was scheduled for a f/u with the pain clinic. Last note I have from them dates from 03/01/2009.Repeat MRI of her LS spine done on 06/04/2012 showed mild spondylosis at L4-L5 and l5-S1.Findings were similar since prior study. Repeat her MRI to r/o worsening disc herniation done 10/26/2016 showed mild lumbar spondylosis with a posterior disc bulge Pt went to the pain clinic for a while but then stopped. Plan: Continue MS Richardson, has a COT contract Encounters Date Type Department Care Team Description 11/11/2024 Telephone [facility] [address] [place] [address] Dio Anderson MD Chart Prep 11/09/2024 Refill [facility] [address] [facility] [place] [address] Dio Anderson MD Chronic right-sided low back pain without sciatica 10/07/2024 Refill [facility] [address] [facility] [place] [address] Dio Anderson MD Chronic right-sided low back pain without sciatica 09/23/2024 3:15 PM EST Clinical Support [facility] [address] [facility] [place] [address] Mone Shelton RN Chronic right-sided low back pain without sciatica 09/23/2024 Travel 09/21/2024 Telephone [facility] [address] [facility] [place] [address] Mone Shelton, [place] 09/12/2024 Refill [facility] [address] [facility] [place] [address] Dio Anderson MD Primary hypertension 09/04/2024 Refill [facility] [address] [facility] [place] [address] Dio Anderson MD Pain 09/03/2024 Refill [facility] [address] [place] [address] Dio Anderson MD Chronic right-sided low back pain without sciatica 08/25/2024 3:00 PM EST Office Visit [facility] [address] [place] [address] Dio Anderson MD Obstructive sleep apnea syndrome (Primary Dx); Chronic obstructive pulmonary disease, unspecified COPD type (CMS/HCC); Primary hypertension; Class 3 severe obesity due to excess calories with serious comorbidity and body mass index (BMI) of 40.0 to 44.9 in adult (CMS/HCC); Chronic right-sided low back pain without sciatica; Dietary counseling; Exercise counseling; Preventative health care; Breast cancer screening by mammogram; Overactive bladder; Depressive disorder; Encounter for immunization 08/25/2024 Travel from Last 3 Months Immunizations Name Administration Dates Next Due Influenza High-dose Quadrivalent Preservative Fr ee 06/19/2022 Influenza injectable quadriv alent IIV4 with preservative 10/01/2017,05/12/2015 Influenza, High Dose Seasonal, Preservative Free 08/25/2024 Influenza, IIV3, injectable 03/22/2014, 3 Influenza, Split (incl. purified surface antigen ) 05/14/2012 TD (adult), 2 Lf tetanus tox oid, preservative free, adsorbed 05/22/2004 Tdap 02/22/2015 Social History Tobacco Use Types Packs/Day Years Used Date Smoking Tobacco: Every Day Cigarettes 0.5 59.3 Started: 1965 Passive Smoke Exposure: Current Smokeless Tobacco: Current Tobacco Cessation:Ready to Q uit: Yes; Counseling Given: Yes Alcohol Use Standard Drinks/Week Comments Never 0 (1 standard drink = 0.6 oz pur e alcohol) Depression Answer Date Recorded Patient Health Questionnaire-9 Score 4 08/25/2024 Patient Health Questionnaire-9 Score 4 08/25/2024 Last PHQ-9: Questionnaire Data Not on file 0 08/25/2024 Housing Stability Answer Date Recorded What is your housing situation today? I have cristobal pantoja 08/25/[address] you li ve. Do you have problems with any of the following? None of the above 08/25/2024 Food Insecurity Answer Date Recorded Within the past 12 months, y ou worried that your food would run out before you got money to buy more: Never True 08/25/2024 Within the past 12 months,th e food you bought just didn't last and you didn't have enough money to get more: Never True 02/2025 Transportation Answer Date Recorded In the past 12 months, has l ack of transportation kept you from medical appts, meetings, work or from getting things needed for daily living? No 08/25/2024 Utilities Answer Date Recorded In the past 12 months, has t he electric, gas, oil or water company threatened to shut off services in your home? No 08/25/2024 Depression Answer Date Recorded Patient Health Questionnaire-2 Score 2 08/25/2024 Internet Access Answer Date Recorded Internet Access Q1 Yes 08/25/2024 Internet Access Q2 Not on file 08/25/2024 Comments Unknown Sex and Gender Information Value Date Recorded Sex Assigned at Female 06/18/2022 10:14 AM EDT Legal Sex Female 10:14 AM EDT Gender Identity Female 06/18/2022 10:14 AM EDT Sexual Orientation Choose not to disclose 2021 10:14 AM EDT Last Filed Vital Signs Vital Sign Reading Time Taken Comments Blood Pressure 160/82 08/25/2024 3:26 PM EST Pulse 78 08/25/2024 2:51 PM EST Temperature 36.1 ??C (96.9 ??F) 08/25/2024 2:51 PM ES T Respiratory Rate 20 08/25/2024 2:51 PM EST Oxygen Saturation 93% 08/25/2024 2:51 PM EST Inhaled Oxygen Concentration - - Weight 109 kg (240 lb) 08/25/2024 2:51 PM EST Height 162.6 cm (5' 4 ) 08/25/2024 2:51 PM EST Body Mass Index 41.2 08/25/2024 2:51 PM EST Plan of Treatment Upcoming Encounters Date Type Department Care Team (Late st Contact Info) Description 12/01/2024 1:15 PM EDT Office Visit [facility] [address] [place], [place] [id number] Dio Anderson MD [address] [place] [address] 12/24/2024 2:30 PM EDT Clinical Support [facility] [address] [place] [address] Mone Shelton, [place] [address] [facility] [place] [address] Health Maintenance Due Date Last Done Comments CT Colonography 1955 Colonoscopy 1955 Colorectal Cancer Screening 1955 FIT DNA/Cologuard 1955 FIT 1955 FOBT 1955 Sigmoidoscopy 1955 Hepatitis C Screening 11/29/1973 Pneumococcal Vaccine: 50+ Years (1 of 2 - PCV) 11/29/1974 Lung Cancer Screening 11/29/2005 Zoster Vaccines (1 of 2) 11/29/2005 RSV Patients and Patients Aged 60 years or older (1 - Risk 60-74 years 1-dose series) 2015 Mammogram 12/29/2023 12/28/2021 COVID-19 Vaccine (3 - season) 2024 04/11/2021, 03/16/2021 DTaP/Tdap/Td Vaccines (2 - Td or Tdap) 02/22/2025 02/22/2015, 05/22/2004 Alcohol/Substance Use Screening 08/25/2025 08/25/2024 Depression Screening 08/25/2025 08/25/2024, 08/25/19 25 SDOH Screening 08/25/2025 08/25/2024 Tobacco Screening 08/25/2025 08/25/2024 Lipid Panel 05/07/2028 05/07/2023, 09/07/2021 Influenza Vaccine Completed 08/25/2024, , 10/01/2017, Additional history exists HIB Vaccines Aged Out No longer eligi ble based on patient's age to complete this topic HPV Vaccines Aged Out No longer eligi ble based on patient's age to complete this topic Hepatitis A Vaccines Aged Out No long er eligible based on patient's age to complete this topic Hepatitis B Vaccines Aged Out No long er eligible based on patient's age to complete this topic IPV Vaccines Aged Out No longer eligi ble based on patient's age to complete this topic Meningococcal Vaccine Aged Out No roddy cory eligible based on patient's age to complete this topic RSV under 20 months Aged Out No longe r eligible based on patient's age to complete this topic Rotavirus Vaccines Aged Out No longer eligible based on patient's age to complete this topic Goals Goal Patient Goal Type Associated Problems Recent Progress Patient-Stated? Author Quit using tobacco (cigarettes, smokeless, etc) Tobacco Use Tobacco dependence syndrome No Dario Cantu PharmD Procedures Procedure Name Priority Date/Time Associated Diagnosis Comments POCT ROBERTO CARLOS-14 URINE DRUG SCREEN Routine 09/23/2024 3:38 PM EST Chronic right-sided low back pain without sciatica LIPID PANEL WITH REFLEX TO DIRECT LDL Routine 05/07/2023 10:30 AM EDT Primary hypertension MAMMOGRAM GENERIC Routine 12/28/2021 2:4 0 PM EDT from Last 3 Months or Most Recently Relevant to Health Maintenance Results * POCT ROBERTO CARLOS-14 Urine Drug Screen (09/23/2024 3:38 PM EST) Opiate Screen, Urine Positive TCA, Urine Positive Urine Urine specimen obtained by clean catch procedure / Unknown 09/23/2024 3:38 PM EST Narrative Mone Shelton RN - 09/23/2024 3:38 PM EST Lot# [id number] Exp: 07-25-25 Dio Ortega MD POINT OF CARE TEST EN TER/EDIT ORDERABLES Final Result * (ABNORMAL) Lipid Panel with Reflex to Direct LDL (05/07/2023 10:30 AM EDT) Triglycerides 121 <150 mg/dL [facility] Comment:Desirable Triglyceri de: less than 150 mg/dLBorderline High Triglyceride 150-199 mg/dLHigh Triglyceride: 200-499 mg/dLVery High Triglyceride: greater than or equal to 5OO mg/dL Cholesterol 231(H) <200 mg/dL [facility] Comment:Desirable Cholestero l: less than 200 mg/dLBorderline High Cholesterol: 200-239 mg/dLHigh Cholesterol: greater than 239 mg/dL LDL Cholesterol Calculated 146(H) <100 mg/dL [facility] Comment:Desirable LDL: less than 100 mg/dLNear Optimal/Above Optimal LDL: 110- 129 mg/dLBorderline High LDL: 130-159 mg/dLHigh LDL: 160-189 mg/dLVery High LDL: greater than or equal to 190 mg/dL HDL Cholesterol 61 >40 mg/dL [facility] Comment:Desirable HDL: great er than 40 mg/dL Note: This HDL assay may give artificially low results in patients with liver disease. Blood 05/07/2023 10:3 0 AM EDT 05/07/2023 11:34 AM EDT Dio Ortega MD LAB BLOOD ORDERABLES Final Result [facility] [address] [place] [phone] * Mammography Report 1 (12/28/2021 2:40 PM EDT) Anatomical Region Laterality Modality Breast Bilateral Mammography 12/28/2021 2:40 PM EDT Narrative 12/29/2021 5:08 PM EDT Refer to the Notes tab for result details [facility] Procedure: Mammography Report 1 Procedure Note ProviderCarina MD - 11/11/2022 Refer to the Notes tab for result details [facility] Procedure: Mammography Report 1 Dio Ortega MD IMG BI PROCEDURES Fin al Result from Last 3 Months or Most Recently Relevant to Health Maintenance Insurance [facility] STANDARD [facility] DUAL COMPLETE Care Teams Conduit Installer Relationship Specialty Start Date End Date Dio Anderson MD [address] [place] [address] PCP - General Internal Medicine 05/31/14 Draio Cantu, KennyD [address] [place] [address] Pharmacist Internal Medicine 10/31/23
--- OUTSIDE RECORDS SUMMARY | 2024-11-23 16:50 | XMS_ITS | Encounter Summary ---
Author Organization [employer] Address [address] [facility] [place] [address] Care Team Providers Care Manufacturing Engineering Professor Name Role Phone Dio Anderson MD Primary Care Provide r Dario Cantu PharmD Unavailable [phone] Reason for Visit * Reason Onset Date Comments Appointment Request 03/03/2024 Encounter Details Date Type Department Care Team ([facility] st Contact Info) Description 03/03/2024 Telephone [facility] [address] [place] [address] Dio Anderson MD 230 [place] [address] Appointment Request Social History Tobacco Use Types Packs/Day Years [...] housing situation today? I have cristobal pantoja 06/03/[address] you [...] enough money to get more: Never True Transportation Answer Date Recorded In the past [...] * Telephone Encounter - Lobo Hdez - 03/03/2024 11:37 AM EDT Tc from pt requesting to r/s appt for IGNITER ASSEMBLER on pt states she cannot make it. documented in this encounter Plan of Treatment Upcoming Encounters Date Type Department Care Team (Late st Contact Info) Description 12/01/2024 1:15 PM EDT Office Visit [facility] [address] [place] [address] Dio Anderson MD [address] [place] [address] 12/24/2024 2:30 PM EDT Clinical Support [facility] [address] [place] [address] Mone Shelton, NIXON 505 [place] [address] documented as of this encounter Goals Goal [...] documented as of this encounter Care Teams Manufacturing Engineering Professor Relationship Specialty Start Date End Date Dio Anderson MD [address] [place] [address] PCP - General Internal Medicine 05/31/14 Dairo Cantu PharmD 230 [place] [address] Pharmacist Internal Medicine 10/31/23 documented as of this encounter
--- OUTSIDE RECORDS SUMMARY | 2024-11-23 16:50 | XMS_ITS | Encounter Summary ---
Author Organization [employer] Address [address] [facility] 7t [place] [address] Care Team Providers Care Grounds Cleaner Name Role Phone Dio Anderson MD Primary Care Provide r Dario Cantu PharmD Unavailable [phone] Reason for Visit * Reason Onset Date Comments Med Refill 04/25/2023 Encounter Details Date Type Department Care Team (Late st Contact Info) Description 04/25/2023 Telephone [facility] MEDICINE [address] [place] [address] Dio Anderson MD [address] [place] [address] Med Refill Social History Tobacco Use Types Packs/Day Years Used Date Smoking Tobacco: Every Day Cigarettes Smokeless Tobacco: Current Depression Answer Date Recorded Patient Health Questionnaire-9 Score 0 10/23/2022 Depression Answer Date Recorded Patient Health Questionnaire-2 Score 0 10/23/2022 Comments Unknown Sex and Gender Information Value Date Recorded Sex Assigned at Female 06/18/2022 10:14 AM EDT Legal Sex Female 10:14 AM EDT Gender Identity Female 06/18/2022 10:14 AM EDT Sexual Orientation Choose not to disclose 2021 10:14 AM EDT documented as of this encounter Miscellaneous Notes * Telephone Encounter - Betina Barriga - 04/25/2023 11:00 AM EDT Tc from patient requesting a med refill for medication morphine CR 30 mg. PCP documented in this encounter Plan of Treatment Upcoming Encounters Date Type Department Care Team (Late st Contact Info) Description 12/01/2024 1:15 PM EDT Office Visit [facility] MEDICINE [address] [place] [address] Dio Anderson MD [address] [place] [address] 12/24/2024 2:30 PM EDT Clinical Support [facility] MED & PEDS 505 [place], [place] [phone] Mone Shelton, RN 505 [place], [place] [phone] documented as of this encounter Visit Diagnoses Not on filedocumented in this encounter Additional Health Concerns Assessment Noted Time PHQ-9 Depression Total Score: 0 10/24/19 23 11:37 AM EST documented as of this encounter Care Teams Grounds Cleaner Relationship Specialty Start Date End Date Dio Anderson MD [address] [place] [address] PCP - General Internal Medicine 05/31/14 Dario Cantu, PharmD [address] [place] [address] Pharmacist Internal Medicine 10/31/23 documented as of this encounter
== END 2024-11-23 14:56 | disposition home or self-care (01) ==
LOC: HO.HUSH 14:04
PROVIDERS: PCP Internal Medicine; Visit Provider Nurse Practitioner Family
DX: N39.0 Urinary tract infection, site not specified (principal); R35.0 Frequency of micturition; N39.41 Urge incontinence
CPT/HCPCS: 99213; G2211

== ENCOUNTER 2024-11-25 14:01 | Outpatient (AMB) | payer OTHER, SELFPAY ==
[2024-11-25 14:08] VITALS: BP 130/80; PULSE 81; O2SAT 95; BMI 38.6
--- NOTE | 2024-11-25 14:08 | MHC.OFFVIS ---
Vital Signs 11/25/24 14:08 Height 5 ft 4 in Weight 224 lb 13.944 oz BMI 38.6 BP 130/80 Blood Pressure Location Lt brachial Position Sitting Pulse 81 Pulse Source Pulse Oximeter Pulse Oximetry (%) 95 Oxygen Delivery Method Room Air Intake Visit Reasons: COPD Intake Note: pt is here for follow up and states that if she does something or exertion she gets short of breath,gradually building up to exertion issue. Computer Graphic Designer Required: No Allergies No Known Allergies Allergy (Mild, Verified 11/25/24 14:20) UNKNOWN Medication List - Last Reconciled 11/25/24 by Oleksandr Ortega MD albuterol sulfate 90 mcg/actuation 2 puffs PO Q4H PRN 30 days amitriptyline 25 mg PO BEDTIME aripiprazole mg PO aripiprazole 2 mg PO DAILY bupropion HCl SR 200 mg PO BID citalopram (Celexa) 20 mg PO DAILY citalopram 40 mg PO QAM estradiol 0.01%(0.1mg/gram) vaginally 3 times a week; pea sized amount to urethra 3 times a week 30 days gabapentin 400 mg PO TID Incruse Ellipta 62.5 mcg/actuation (umeclidinium) 1 inh PO DAILY NS losartan 25 mg PO DAILY mirabegron ER (Myrbetriq) 50 mg (2 x 25 mg) PO DAILY 90 days mirtazapine 15 mg PO BEDTIME morphine ER 30 mg PO DAILY naloxone 4 mg/actuation 0 sprays intranasal verapamil 40 mg PO BID HPI HPI COPD: Details: PARADISE is 68 years old very pleasant female, comes for follow-up after 4 months. She is grossly obese and has sleep apnea with nocturnal hypoxemia. She has mild obstructive airway disorder as well. Using CPAP very regularly every night and, sleeps well. However due to multiple medical problems and taking multiple medications her sleep gets disrupted. So she has to use the CPAP sometime during the days as well. Breathing landeros she is stable however complains of increased dyspnea on exertion, .Denies cough or wheezing She does use Incruse Ellipta once a day and albuterol just PRN. [facility] Medical History Costochondral chest pain OAB (overactive bladder) Nocturnal hypoxemia Maternal UTI (urinary tract infection), recurrent Urgency incontinence Urge incontinence Cough COPD (chronic obstructive pulmonary disease) Obesity JOSE RAMON (obstructive sleep apnea) Social History Alcohol intake: never Patient Tobacco Use Status: Current someday Tobacco user Cigarette Packs Per Day: 0.5 Cigarettes Per Day: 10.0 Current occupational status: disabled Current occupation: Right Handed Review of Systems Const All systems reviewed & are unremarkable except as noted in HPI and below Eyes Reports no additional complaints ENT Reports nasal congestion (MILD INTERMITTENT) Card Reports chest pain ( nonspecific discomfort in the left upper chest), Denies irregular heart rhythm, Denies leg edema and Denies dyspnea on exertion Resp Reports as per HPI, Denies cough, Denies dyspnea on exertion and Denies wheezing GI Reports no additional complaints Reports urinary urgency Musc Reports back pain (DUE TO COUGH) Skin/Breast Reports system reviewed and no additional complaints, except as documented Neuro Reports no additional complaints Psych Reports no additional complaints Aller/Immun Denies wheezing Physical Exam Vital Signs: Last Vital Signs Pulse 81 11/25/24 14:08 BP 130/80 11/25/24 14:08 Pulse Ox 95 11/25/24 14:08 Oxygen Delivery Method Room Air 11/25/24 14:08 BMI result Body Mass Index 38.6 Const General: healthy appearing, comfortable, no acute distress, alert and awake Orientation/consciousness: patient oriented x3 HEENT Head: Yes normal to inspection General nose exam: No nasal polyps present and No nasal discharge present Face and sinus: Yes sinuses nontender Mouth: oropharynx normal Throat: Yes posterior oropharynx normal Eyes General: appearance normal, both eyes and all related structures Neck Neck: Yes normal visual inspection, Yes no lymphadenopathy, Yes trachea midline and Yes no JVD Thyroid: Thyroid normal Chest Chest palpation & inspection: normal inspection of the chest, normal palpation of entire chest wall and no tenderness Resp Other: PERCUSSION NOTE IS RESONANT BREATH SOUNDS ARE DISTANT WITH PROLONGED EXPIRATORY PHASE, NO WHEEZES OR RHONCHI ARE HEARD TODAY. Cardio Palpation: normal PMI Rate: regular rate Rhythm: regular rhythm Heart sounds: no gallops and no murmurs GI Palpation (GI): Soft to palpation, nontender, No hepatosplenomegaly present and no masses Auscultation: normal bowel sounds Back/Spine/Pelvis Thoracic/Lumbar Spine: thoracic and lumbar spine normal to inspection Skin General skin exam: no rashes or lesions noted Neuro General: patient oriented x3 and no focal motor deficits Cranial nerves: Yes CN's II-XII intact bilaterally Extrem General: Yes normal to inspection, Yes no clubbing, cyanosis or edema and Yes no calf tenderness Psych Appearance: grossly normal Speech and movement: Normal speech and movement present Office Procedures Spirometry Testing Spirometry Comments: Spirometry done in the office, Dr. Ortega has the results results scanned to her chart. test performed by Oralia Werner RRT. [address]- Spirometry Results Reviewed Results Reviewed: SPIROMETRY 04/23/2023 FVC= 78 % 92 % FEV1= 69 % 90 % FEF 25-75 47 % 59 % Assessment & Plan Assessment & Plan (1) JOSE RAMON (obstructive sleep apnea): Comment: WELL KNOWN CASE OF OBSTRUCTIVE SLEEP APNEA. PATIENT IS VERY COMPLIANT IN USING CPAP AND IS BENEFITTING, * SHE IS USING CPAP UP TO 10 HOURS A DAY NO ISSUES RELATED TO THE CPAP MASK OR MACHINE. Code(s): G47.33 - Obstructive sleep apnea (adult) (pediatric) Category: Medical Plan: COMMENDED FOR GOOD COMPLIANCE AND ADVISED TO CONTINUE USING THE CPAP REGULARLY (2) Nocturnal hypoxemia: Comment: SHE HAS NOCTURNAL HYPOXEMIA ,IN ADDITION TO OBSTRUCTIVE SLEEP APNEA. AND DOES USE OXYGEN 2 L/MINUTE ALONG WITH THE CPAP Code(s): G47.34 - Idiopathic sleep related nonobstructive alveolar hypoventilation Category: Medical Plan: ADVISED TO CONTINUE USING O2 2 L/MINUTE. ALONG WITH THE CPAP. (3) COPD (chronic obstructive pulmonary disease): Comment: SHE HAS PAST DIAGNOSIS OF COPD. BUT LAST SPIROMETRY WAS ESSENTIALLY NORMAL. SPIROMETRY TODAY SHOWS MODERATE DEGREE OF OBSTRUCTIVE AIRWAY DISORDER, THE NUMBERS HAVE DECLINED FROM BEFORE. PATIENT IS COMPLAINING OF INCREASED DYSPNEA ON EXERTION Code(s): J44.9 - Chronic obstructive pulmonary disease, unspecified Category: Medical Plan RESULTS OF SPIROMETRY EXPLAINED. ADVISED TO USE INCRUSE ELLIPTA 1 INHALATION DAILY REGULARLY. AND ALSO USE ALBUTEROL 2 PUFFS Q 6 HOURS P.R.N. GIVEN INCENTIVE SPIROMETRY DEVICE AND ADVISED TO DO BREATHING EXERCISES EVERY 2-3 HOURS DURING THE DAY. Orders: Orders AMB Spirometry Testing Today Oleksandr Ortega MD J44.9 - Chronic obstructive pulmonary disease, unspecified AMB Spirometry Testing Today Yvette Genao J44.9 - Chronic obstructive pulmonary disease, unspecified Coding Level of Care Code Est Pt Level 3 (93052) Diagnoses JOSE RAMON (obstructive sleep apnea) G47.33 Nocturnal hypoxemia G47.34 COPD (chronic obstructive pulmonary disease) J44.9 CPT Codes Spirometry - CPT: 33796- Spirometry ([id number])
--- OUTSIDE RECORDS SUMMARY | 2024-11-25 16:17 | XMS_ITS | Clinical Summary ---
Author Organization [employer] Address [address] [facility] 7[address] [place] [address] Care Team Providers Care Supervisor Compressed Yeast Name Role Phone Dio Anderson MD Primary Care Provide r Dario Cantu PharmD Unavailable [phone] Allergies No known active allergies Medications naloxone [...] hyperplastic polyps. she was last seen at [facility] on 10/28/2012 and their impression was [...] years in past having started going to [facility]. Stopped going due to transportation issues and [...] EVEN BEFORE PUTTING ON THE CPAP AND GA AN DURING THE NIGHT. Chronic low back [...] injections (April 2006). she was seen at [facility] and subsequently at the [facility] pain clinic. At some point she was [...] injections (April 2006). she was seen at [facility] and subsequently at the [facility] pain clinic. At some point she was [...] injections (April 2006). she was seen at [facility] and subsequently at the [facility] pain clinic. At some point she was [...] Encounters Date Type Department Care Team Description 11/23/2024 Orders Only GENERIC EXTERNAL DATA DEPARTMENT Provider, Generic External Data 11/11/2024 Telephone [facility] [address] [facility] [place] [address] Dio Anderson MD Chart Prep 11/09/2024 Refill [facility] [address] [facility] [place] [address] Dio Anderson MD Chronic right-sided low back pain without sciatica 10/07/2024 Refill [facility] [address] [facility] [place] [address] Dio Anderson MD Chronic right-sided low back pain without sciatica 09/23/2024 3:15 PM EST Clinical Support [facility] MED & PEDS [address] [facility] [place] [address] Mone Shelton, wig stylist right-sided low back pain without sciatica 09/23/2024 Travel 09/21/2024 Telephone [facility] MED & [facility]EDS [address] [facility] [place] [address] Mone Shelton, RN 09/12/2024 Refill [facility] [address] [facility] [place], [place] [address] Dio Anderson MD Primary hypertension 09/04/2024 Refill [facility] [address] [facility] [place] [place] [address] Dio Anderson MD Pain 09/03/2024 Refill [facility] [address] [facility] [place] [address] Dio Anderosn MD Chronic right-sided low back pain without sciatica from Last 3 Months Immunizations Name Administration [...] Care Team (Late st Contact Info) Description 12/24/2024 2:30 PM EDT Clinical Support [facility] & PEDS [address] [place] [address] Mone Shelton, RN 505 [place] [address] Health Maintenance Due Date Last Done Comments [...] Mammogram 12/29/2023 12/28/2021 COVID-19 Vaccine (3 - 2024-25 season) 2024 04/11/2021, 03/16/2021 DTaP/Tdap/Td Vaccines (2 - Td or Tdap) 02/22/2025 02/22/2015, 05/22/2004 Alcohol/Substance Use Screening 08/25/2025 08/25/2024 Depression Screening 08/25/2025 08/25/2024, 08/25/19 SDOH Screening 08/25/2025 08/25/2024 Tobacco Screening 08/25/2025 [...] Use Tobacco dependence syndrome No Dario Cantu, Harpreet Procedures Procedure Name Priority Date/Time Associated Diagnosis Comments CULTURE, URINE, ROUTINE Routine 11/23/2024 2:04 PM EDT POCT ROBERTO CARLOS-14 URINE DRUG SCREEN Routine 09/23/2024 3:38 PM EST Chronic right-sided low back pain without sciatica LIPID PANEL WITH REFLEX TO DIRECT LDL Routine 05/07/2023 10:30 AM EDT Primary hypertension MAMMOGRAM GENERIC Routine 12/28/2021 2:4 0 PM EDT from Last 3 Months or Most Recently Relevant to Health Maintenance Results * Culture, Urine, Routine (11/23/2024 2:04 PM EDT) Urine Urine specimen obtained by clean catch procedure / Unknown 11/23/2024 2:04 PM EDT 11/23/2024 5:16 PM EDT Comment:[facility]ACC Narrative [facility] - 11/25/2024 10:43 AM EDT Urine Culture Report Result Urine Culture 10,000 to 50,000 cfu/ml Urine Culture Mixed bacterial javier characteristic of Urine Culture urogenital contamination. Specimen Source: Urine clean catch us Generic External Data Provider LAB MICROBIOLOGY - GENERAL ORDERABLES Final Result [facility] [address] [place] [phone] * POCT ROBERTO CARLOS-14 Urine Drug Screen (09/23/2024 3:38 PM EST) Opiate Screen, Urine Positive TCA, Urine Positive Urine Urine specimen obtained by clean catch procedure / Unknown 09/23/2024 3:38 PM EST Narrative Mone Shelton RN - 09/23/2024 3:38 PM EST Lot# [id number] Exp: 07-25-25 us Dio Ortega MD POINT OF CARE TEST EN TER/EDIT ORDERABLES Final Result * (ABNORMAL) Lipid Panel with Reflex to Direct LDL (05/07/2023 10:30 AM EDT) Triglycerides 121 <150 mg/dL [facility] Comment:Desirable Triglyceri de: less than 150 mg/dLBorderline High Triglyceride 150-199 mg/dLHigh Triglyceride: 200-499 mg/dLVery High Triglyceride: greater than or equal to 5OO mg/dL Cholesterol 231(H) <200 mg/dL [facility] Comment:Desirable Cholestero l: less than 200 mg/dLBorderline High Cholesterol: 200-239 mg/dLHigh Cholesterol: greater than 239 mg/dL LDL Cholesterol Calculated 146(H) <100 mg/dL [facility] Comment:Desirable LDL: less than 100 mg/dLNear Optimal/Above Optimal LDL: 110- 129 mg/dLBorderline High LDL: 130-159 mg/dLHigh LDL: 160-189 mg/dLVery High LDL: greater than or equal to 190 mg/dL HDL Cholesterol 61 >40 mg/dL [facility] Comment:Desirable HDL: great er than 40 mg/dL Note: This HDL assay may give artificially low results in patients with liver disease. Blood 05/07/2023 10:3 0 AM EDT 05/07/2023 11:34 AM EDT Dio Ortega MD LAB BLOOD ORDERABLES Final Result [facility] [address] [place] [address] [phone] * Mammography Report 1 (12/28/2021 2:40 PM EDT) Anatomical Region Laterality Modality Breast Bilateral Mammography 12/28/2021 2:40 PM EDT Narrative 12/29/2021 5:08 PM EDT Refer to the Notes tab for result details [facility] Procedure: Mammography Report 1 Procedure Note Provider, MD Carina - 11/11/2022 Refer to the Notes tab for result details [facility] Procedure: Mammography Report 1 Dio Ortega MD IMG BI PROCEDURES Fin al Result from Last 3 Months or Most Recently Relevant to Health Maintenance [place] [address] [address] STANDARD [facility] DUAL COMPLETE Care Teams Supervisor Compressed Yeast Relationship Specialty Start Date End Date Dio Anderson MD [address] [place] [address] PCP - General Internal Medicine 05/31/14 Dario Cantu PharmD [address] [place], [place] Pharmacist Internal Medicine 10/31/23
--- OUTSIDE RECORDS SUMMARY | 2024-11-25 16:17 | XMS_ITS | Encounter Summary ---
Author Organization [email or web address] Address [address] 7[address] [place] [address] Care Team Providers Care Cpht Name Role Phone Dio Anderson MD Primary Care Provide r Dario Cantu PharmD Unavailable [phone] Reason for Visit * Reason Onset Date Comments Med Refill 04/09/2024 Encounter Details Date Type Department Care Team ([facility] st Contact Info) Description 04/09/2024 Telephone [facility] MEDICINE [address] [place] [address] Dio Anderson MD [address] [place] [address] Med Refill Social History Tobacco Use Types [...] Description 12/24/2024 2:30 PM EDT Clinical Support [facility] & [facility]EDS [address] [place] [address] Mone Shelton, RN [address] [place] [address] documented as of this encounter Goals Goal [...] documented as of this encounter Care Teams Cpht Relationship Specialty Start Date End Date Dio Anderson MD [address] [place] [place] [id number] PCP - General Internal Medicine 05/31/14 Dario Cantu, KennyD [address] [place] [place] [phone] Pharmacist Internal Medicine 10/31/23 documented as of this encounter
--- OUTSIDE RECORDS SUMMARY | 2024-11-25 16:17 | XMS_ITS | Encounter Summary ---
Author Organization [employer] Address [address] [facility] 7t [place] [address] Care Team Providers Care Copy Chaser Name Role Phone Dio Anderson MD Primary Care Provide r Dario Cantu PharmD Unavailable [phone] Encounter Details Date Type Department Care Team (Late st Contact Info) Description 11/23/2024 Orders Only GENERIC EXTERNAL DATA DEPARTMENT Provider, Generic External Data Social History Tobacco Use Types Packs/Day Years [...] AM EDT documented as of this encounter Plan of Treatment Upcoming Encounters Date Type Department Care Team (Late st Contact Info) Description 12/24/2024 2:30 PM EDT Clinical Support [facility] MED & PEDS [address] [place] [address] Mone Shelton, RN [address] [place] [address] documented as of this encounter Goals Goal Patient Goal Type Associated Problems Recent Progress Patient-Stated? Author Quit using tobacco (cigarettes, smokeless, etc) Tobacco Use Tobacco dependence syndrome No Dario Cantu, PharmD documented as of this encounter Procedures Procedure Name Priority Date/Time Associated Diagnosis Comments CULTURE, URINE, ROUTINE Routine 11/23/2024 2:04 PM EDT documented in this encounter Results * Culture, Urine, Routine (11/23/2024 2:04 PM EDT) Urine Urine specimen obtained by clean catch procedure / Unknown 11/23/2024 2:04 PM EDT 11/23/2024 5:16 PM EDT Comment:[facility] - 11/25/2024 10:43 AM EDT Urine Culture Report Result Urine Culture 10,000 to 50,000 cfu/ml Urine Culture Mixed bacterial javier characteristic of Urine Culture urogenital contamination. Specimen Source: Urine clean catch us Generic External Data Provider LAB MICROBIOLOGY - GENERAL ORDERABLES Final Result [facility] [address] [place] [phone] [phone] documented in this encounter Visit Diagnoses Not on filedocumented in this encounter Additional Health Concerns Assessment Noted Time PHQ-9 Depression Total Score: 4 08/25/19 25 3:00 PM EST documented as of this encounter Care Teams Copy Chaser Relationship Specialty Start Date End Date Dio Anderson MD [address] [place] [id number] PCP - General Internal Medicine 05/31/14 Dario Cantu PharmD [address] [place] [phone] Pharmacist Internal Medicine 10/31/23 documented as of this encounter
--- OUTSIDE RECORDS SUMMARY | 2024-11-25 16:17 | XMS_ITS | Encounter Summary ---
Author Organization [employer] Address [address] [facility] 7t [place] [address] Care Team Providers Care Reed Worker Name Role Phone Dio Anderson MD Primary Care Provide r Dario Cantu PharmD Unavailable [phone] Reason for Visit * Reason Onset Date Comments Med Refill 04/25/2023 Encounter Details Date Type Department Care Team (Late st Contact Info) Description 04/25/2023 Telephone [facility] MEDICINE [address] [place] [address] Dio Anderson MD [address] [place] [address] Med Refill Social History Tobacco Use Types [...] Description 12/24/2024 2:30 PM EDT Clinical Support [facility] & PEDS [address] [place] [address] Mone Shelton, RN [address] [place], [place] documented as of this encounter Visit Diagnoses Not on filedocumented in this encounter Additional Health Concerns Assessment Noted Time PHQ-9 Depression Total Score: 0 10/24/19 23 11:37 AM EST documented as of this encounter Care Teams Reed Worker Relationship Specialty Start Date End Date Dio Anderson MD [address] [place] [phone] PCP - General Internal Medicine 05/31/14 Dario Cantu PharmD [address] [place] [address] Pharmacist Internal Medicine 10/31/23 documented as of this encounter
--- OUTSIDE RECORDS SUMMARY | 2024-11-25 16:17 | XMS_ITS | Encounter Summary ---
Author Organization [employer] Address [address] [facility] [facility] [address] 7[address] [place] [address] Care Team Providers Care Sawdust Machine Operator Name Role Phone Dio Anderson MD Primary Care Provide r Dario Cantu PharmD Unavailable [phone] Reason for Visit * Reason Onset Date Comments Appointment Request 03/03/2024 Encounter Details Date Type Department Care Team (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 documented in this encounter Plan of Treatment Upcoming Encounters Date Type Department Care Team (Late st Contact Info) Description 12/24/2024 2:30 PM EDT Clinical Support [facility] MED & PEDS [address] [place] [address] Mone Shelton, RN [address] [place] [address] documented as of this encounter Goals Goal [...] documented as of this encounter Care Teams Sawdust Machine Operator Relationship Specialty Start Date End Date Dio Anderson MD [address] [place] [id number] PCP - General Internal Medicine 05/31/14 Dario Cantu, Harpreet [address] [place] [phone] Pharmacist Internal Medicine 10/31/23 documented as of this encounter
== END 2024-11-25 14:43 | disposition home or self-care (01) ==
PROVIDERS: PCP Internal Medicine; Visit Provider Internal Medicine
DX: G47.33 Obstructive sleep apnea (adult) (pediatric) (principal); G47.34 Idiopathic sleep related nonobstructive alveolar hypoventilation; J44.9 Chronic obstructive pulmonary disease, unspecified
CPT/HCPCS: 94010; 99213

== ENCOUNTER → 2024-11-25 14:01 | Outpatient (BNVA) | payer OTHER, SELFPAY | PROVIDERS: PCP Internal Medicine; Visit Provider Internal Medicine | DX: J44.9 Chronic obstructive pulmonary disease, unspecified (principal); G47.33 Obstructive sleep apnea (adult) (pediatric); G47.34 Idiopathic sleep related nonobstructive alveolar hypoventilation; Z99.89 Dependence on other enabling machines and devices | CPT/HCPCS: 94010; 99212 ==

== ENCOUNTER 2024-12-02 15:35 | Outpatient (REF) | payer OTHER, SELFPAY | END 2024-12-02 15:36 | disposition home or self-care (01) | LOC: HO.MAMMO 15:35 | PROVIDERS: PCP Internal Medicine; Visit Provider Internal Medicine | DX: Z12.31 Encounter for screening mammogram for malignant neoplasm of breast (principal) | CPT/HCPCS: 77063; 77067 ==

== ENCOUNTER → 2024-12-02 16:00 | Outpatient (BNV) | payer OTHER, SELFPAY | PROVIDERS: PCP Internal Medicine; Visit Provider Internal Medicine | DX: Z12.31 Encounter for screening mammogram for malignant neoplasm of breast (principal) | CPT/HCPCS: 77063; 77067 ==